=== PATIENT | female | born 1990 | race Caucasian/White ===

== ENCOUNTER 2016-12-09 22:53 | Emergency (ER) | payer OTHER ==
[2016-12-09] MEDS ORDERED: SODIUM CHLORIDE 0.9% 1,000 ML IV ONE (22:56)
[2016-12-09] MEDS ORDERED: ONDANSETRON 4 MG/2 ML VIAL IVP STA (22:56)
--- NOTE | 2016-12-09 23:01 | ED Physician Documentation ---
PD HPI SYNCOPE - Stated complaint Stated Complaint: - History obtained from History obtained from: Patient, EMS - History of Present Illness Witnessed: Witnessed Timing - onset: How many minutes ago (30) Duration: Seconds Preceding symptoms: Light headed Associated symptoms: Nausea / vomiting. No: Seizure, Incontinant of urine Contributing factors: No: Recent med change, Decreased PO intake, Noxious stimulae Injury occurred: No: Head injury, Neck injury Similar symptoms before: Has not had sx before Recently seen: Not recently seen - Additional information Additional information: Patient is a 26 year old female with no significant past medical history who was brought in by ems for a syncopal episode. According to patient and ems, patient was washing dishes when her housemates heard her crash in the kitchen. When they arrived patient was awake and alert so they called ems. EMS reports normal vital signs and normal blood glucose, but states patient had an episode of vomiting. Review of Systems Constitutional: denies: Fever, Chills Eyes: denies: Decreased vision, Photophobia Ears: denies: Loss of hearing, Ear pain Nose: denies: Rhinorrhea / runny nose, Congestion Throat: denies: Sore throat Cardiac: denies: Chest pain / pressure, Palpitations Respiratory: denies: Dyspnea, Cough, Wheezing GI: reports: Nausea, Vomiting. denies: Constipation, Diarrhea : denies: Dysuria, Frequency Skin: reports: Lesions Musculoskeletal: denies: Neck pain, Back pain, Extremity pain, Joint pain Neurologic: reports: Generalized weakness, Syncope. denies: Focal weakness, Headache, Head injury Psychiatric: denies: Depressed, Suicidal Immunocompromised: denies: Immunocompromised PD PAST MEDICAL HISTORY - Present Medications Home Medications: Ambulatory Orders Medication Instructions Recorded Confirmed Adalimumab [Humira] 20 mg SQ ONCE 12/09/16 12/09/16 Ondansetron Odt [Zofran] 4 mg TL Q6H PRN #20 tablet 12/10/16 - Allergies Allergies/Adverse Reactions: Allergies Allergy/AdvReac Type Severity Reaction Status Date / Time Penicillins Allergy Emesis Verified 12/09/16 23:02 PD ED PE NORMAL - Vitals Vital signs reviewed: Yes - General General: Alert and oriented X 3, No acute distress, Well developed/nourished - HEENT HEENT: Atraumatic, PERRL - Neck Neck: Supple, no meningeal sign, No JVD - Cardiac Cardiac: RRR, No murmur, No rub - Respiratory Respiratory: No respiratory distress, Clear bilaterally - Abdomen Abdomen: Soft, Non tender, Non distended - Derm Derm: Normal color, Warm and dry, No rash - Extremities Extremities: No deformity, Normal ROM s pain, No edema, No calf tenderness / cord - Neuro Neuro: Alert and oriented X 3, equipment or machinery cleaner 2-12 intact, No motor deficit, No sensory deficit, Normal speech - Psych Psych: Normal mood Results - Vitals Vitals: Vital Signs - 24 hr 12/09/16 12/10/16 12/10/16 22:58 00:03 00:11 Temperature 38 C H 37.1 C Heart Rate 71 72 Respiratory 16 14 Rate Blood Pressure 129/73 120/62 O2 Saturation 99 100 12/10/16 00:48 Temperature 37.2 C Heart Rate 73 Respiratory 18 Rate Blood Pressure 118/72 O2 Saturation 100 Oxygen O2 Source Room air - EKG (time done) 2300 Rate: Rate (enter#) (71) Rhythm: NSR [place]: Normal Intervals: Normal AR QRS: Normal Ischemia: Normal ST segments Compare to prior EKG: Old EKG unavailable - Labs Labs: Laboratory Tests 12/09/16 12/09/16 12/09/16 23:09 23:09 23:54 WBC 12.5 H RBC 4.82 Hgb 12.3 Hct 37.6 MCV 78.0 L MCH 25.6 L MCHC 32.8 RDW 16.3 H Plt Count 282 MPV 9.4 Neut # 8.9 H Lymph # 2.5 [place] # 0.8 Eos # 0.2 Baso # 0.1 Absolute Nucleated RBC 0.01 Nucleated RBC % 0.1 Sodium 141 Potassium 3.5 Chloride 105 Carbon Dioxide 26 Anion Gap 10.0 BUN 13 Creatinine 0.9 Estimated GFR (MDRD) 76 L Glucose 102 H Calcium 9.9 Total Bilirubin 0.7 AST 21 ALT 24 Alkaline Phosphatase 45 Total Protein 8.7 H Albumin 4.2 Globulin 4.5 H Albumin/Globulin Ratio 0.9 L Lipase 23 Urine Color Urine Clarity Urine pH Ur Specific [place] Urine Protein Urine Glucose (UA) Urine Ketones Urine Occult Blood Urine Nitrite Urine Bilirubin Urine Urobilinogen Ur Leukocyte Esterase Ur Microscopic Review Urine Culture Comments Urine HCG, Qual Urine Opiates Screen NEGATIVE Ur Oxycodone Screen NEGATIVE Urine Methadone Screen NEGATIVE Ur Propoxyphene Screen NEGATIVE Ur Barbiturates Screen NEGATIVE Ur Tricyclics Screen NEGATIVE Ur Phencyclidine Scrn NEGATIVE Ur Amphetamine Screen NEGATIVE U Methamphetamines Scrn NEGATIVE U Benzodiazepines Scrn NEGATIVE Urine Cocaine Screen NEGATIVE U Cannabinoids Screen NEGATIVE Ethyl Alcohol < 5.0 12/09/16 23:54 WBC RBC Hgb Hct MCV MCH MCHC RDW Plt Count MPV Neut # Lymph # [place] # Eos # Baso # Absolute Nucleated RBC Nucleated RBC % Sodium Potassium Chloride Carbon Dioxide Anion Gap BUN Creatinine Estimated GFR (MDRD) Glucose Calcium Total Bilirubin AST ALT Alkaline Phosphatase Total Protein Albumin Globulin Albumin/Globulin Ratio Lipase Urine Color YELLOW Urine Clarity CLEAR Urine pH 6.0 Ur Specific [place] >=1.030 H Urine Protein NEGATIVE Urine Glucose (UA) NEGATIVE Urine Ketones NEGATIVE Urine Occult Blood NEGATIVE Urine Nitrite NEGATIVE Urine Bilirubin NEGATIVE Urine Urobilinogen 0.2 (NORMAL) Ur Leukocyte Esterase NEGATIVE Ur Microscopic Review NOT INDICATED Urine Culture Comments NOT INDICATED Urine HCG, Qual NEGATIVE Urine Opiates Screen Ur Oxycodone Screen Urine Methadone Screen Ur Propoxyphene Screen Ur Barbiturates Screen Ur Tricyclics Screen Ur Phencyclidine Scrn Ur Amphetamine Screen U Methamphetamines Scrn U Benzodiazepines Scrn Urine Cocaine Screen U Cannabinoids Screen Ethyl Alcohol PD MEDICAL DECISION MAKING - ED course Complexity details: reviewed old records, reviewed results, re-evaluated patient , considered differential, d/w patient, d/w family ED course: Patient was seen and examined at bedside. ekg was performed and was nsr. labs were drawn and patient was treated with fluids and zofran. when patient's diagnostics came back she was found to be mildly dehydrated. Upon re- evaluation patient was feeling much better. Patient had no syncopal or near syncopal episodes. Patient required no further work up and was stable for discharge with outpatient follow up. Departure - Departure Disposition: 01 Home, Self Care Clinical Impression: Syncope Condition: Good Instructions: ED Fainting Unkn Cause Follow-Up: Heather Patiño ARNP [Primary Care Provider] - Within 3 Days Prescriptions: Ondansetron Odt [Zofran] 4 mg TL Q6H PRN #20 tablet PRN Reason: Nausea / Vomiting Comments: Your diagnostics today showed mild dehydration and a slight elevation in your wbc. You are likely starting to fight a virus. It is important to stay well hydrated with 80-100oz of fluid a day. You can take zofran for nausea, and motrin or tylenol as needed for fevers or chills. You should follow up with your doctor this week if your symptoms persist. You may return to the emergency department at any time for new, worsening or uncontrollable symptoms. Forms: Activity restrictions
[2016-12-09 23:15] LABS: BASOPHILS # (AUTO) 0.1 10^3/uL (0.0-0.1); BASOPHILS % (AUTO) 0.5 %; EOSINOPHILS # (AUTO) 0.2 10^3/uL (0.0-0.7); EOSINOPHILS % (AUTO) 1.5 %; HCT - HEMATOCRIT 37.6 % (37.0-47.0); HGB - HEMOGLOBIN 12.3 g/dL (12.0-16.0); LYMPHOCYTES # (AUTO) 2.5 10^3/uL (1.5-3.5); LYMPHOCYTES % (AUTO) 20.2 %; MEAN CORPUSCULAR HEMOGLOBIN 25.6 pg (27.0-31.0); MEAN CORPUSCULAR HGB CONC 32.8 g/dL (32.0-36.0); MEAN PLATELET VOLUME 9.4 fL (7.9-10.8); MONOCYTES # (AUTO) 0.8 10^3/uL (0.0-1.0); MONOCYTES % (AUTO) 6.4 %; NEUTROPHILS # (AUTO) 8.9 10^3/uL (1.5-6.6); NEUTROPHILS % (AUTO) 71.4 %; NUCLEATED RED BLOOD CELLS AUTO 0.1 /100WBC; RED BLOOD COUNT 4.82 10^6/uL (4.20-5.40); RED CELL DISTRIBUTION WIDTH 16.3 % (12.0-15.0); UNCORRECTED WHITE BLOOD COUNT 12.5 x10^3/uL; WHITE BLOOD COUNT 12.5 x10^3/uL (4.8-10.8)
[2016-12-09] MEDS ORDERED: ONDANSETRON 4 MG/2 ML VIAL ONE (23:25)
[2016-12-09 23:28] LABS: ALBUMIN/GLOBULIN RATIO 0.9 (1.0-2.2); BILIRUBIN,TOTAL 0.7 mg/dL (0.2-1.0); BUN - BLOOD UREA NITROGEN 13 mg/dL (6-20); CALCIUM 9.9 mg/dL (8.5-10.3); CARBON DIOXIDE - CO2 26 mmol/L (21-32); CHLORIDE 105 mmol/L (101-111); CREATININE 0.9 mg/dL (0.4-1.0); GFR - MDRD 76 (>89); GLUCOSE 102 mg/dL (70-100); LIPASE 23 U/L (22-51); POTASSIUM 3.5 mmol/L (3.5-5.0); SODIUM 141 mmol/L (135-145); TOTAL PROTEIN 8.7 g/dL (6.7-8.2)
[2016-12-10 00:12] LABS: BILIRUBIN,URINE NEGATIVE (NEGATIVE)
[2016-12-10 00:22] LABS: UA CHARGE (STRIP ONLY) YES; UR CULTURE IF IND NOT INDICATED
[2016-12-10 00:23] LABS: HCG UR QUAL NEGATIVE
[2016-12-10 00:51] VITALS: BP 118/72
== END 2016-12-10 01:00 | disposition home or self-care (01) ==
LOC: ED 22:53
DX: R55 Syncope and collapse (principal); E86.0 Dehydration; D72.829 Elevated white blood cell count, unspecified
CPT/HCPCS: 36415; 51701; 80053; 80306; 80320; 81001; 81003; 81025; 83690; 85025; 87086; 93005; 96361; 96374; 99284

== ENCOUNTER 2018-11-22 13:42 | Emergency (ER) | payer SELFPAY ==
[2018-11-22] MEDS ORDERED: SODIUM CHLORIDE 0.9% 1,000 ML IV ONE ×3 (13:58→14:03)
[2018-11-22] MEDS ORDERED: HYDROmorphone 1 MG/ML CARPUJECT IVP STA ×3 (13:58→20:45)
[2018-11-22] MEDS ORDERED: ONDANSETRON 4 MG/2 ML VIAL IVP STA ×2 (13:58→19:33)
[2018-11-22] MEDS ORDERED: metroNIDAZOLE 500 MG/100 ML 500 MG/100 ML BAG IV STA (14:01)
[2018-11-22] MEDS ORDERED: cefTRIAXone 2 GM in SODIUM CHLORIDE 0.9% MINIBAG 100 ML IV STA (14:01)
[2018-11-22] MEDS ORDERED: ACETAMINOPHEN 1,000 MG/100 ML 100 ML IV STA (14:03)
--- NOTE | 2018-11-22 14:06 | ED Physician Documentation ---
History of Present Illness - Stated complaint Stated Complaint: TOOTH X - Chief complaint Chief Complaint: Fever - History obtained from History obtained from: Patient, Family - History of Present Illness Pain level max: 10 Pain level now: 10 - Additonal information Additional information: 28-year-old female presents to the emergency department complaining of left upper and lower dental pain that started yesterday. She states today she started vomiting has developed a headache. Nothing makes it better or worse. No facial swelling. She states that her stomach is been hurting for the past several weeks as well. She states she was seen at [facility] 2 weeks ago and had a normal abdominal ultrasound and was recommended to have a HIDA scan. Review of Systems Ten Systems: 10 systems reviewed and negative Constitutional: reports: Fever Nose: denies: Rhinorrhea / runny nose, Congestion, Foreign Body Throat: denies: Sore throat Cardiac: denies: Chest pain / pressure Respiratory: denies: Cough GI: reports: Abdominal Pain, Nausea, Vomiting. denies: Diarrhea : denies: Dysuria, Frequency, Hesitancy, Now EGA Skin: denies: Rash Musculoskeletal: denies: Neck pain, Back pain Neurologic: denies: Headache PD PAST MEDICAL HISTORY - Past Medical History Past Medical History: Yes Respiratory: Asthma Derm: Other - Past Surgical History Past Surgical History: No - Present Medications Home Medications: Ambulatory Orders Medication Instructions Recorded Confirmed Albuterol Sulf [Ventolin Hfa 1 - 2 puffs INH Q4HR PRN #1 inhaler 11/07/18 Inhaler] - Allergies Allergies/Adverse Reactions: Allergies Allergy/AdvReac Type Severity Reaction Status Date / Time Penicillins Allergy Emesis Verified 11/22/18 13:49 - Social History Does the pt smoke?: No Smoking Status: Never smoker Does the pt have substance abuse?: No PD ED PE NORMAL - Vitals Vital signs reviewed: Yes - General General: Alert and oriented X 3, No acute distress, Well developed/nourished - HEENT HEENT: PERRL, Moist mucous membranes, Pharynx benign, Dentition benign - Neck Neck: Supple, no meningeal sign - Cardiac Cardiac: Other (Tachycardic) - Respiratory Respiratory: No respiratory distress, Clear bilaterally - Abdomen Abdomen: Soft, Non distended, Other (Tender to palpation right upper quadrant, positive Estevez sign) - Back Back: No spinal TTP, Other (Bilateral CVA tenderness.) - Derm Derm: Warm and dry - Extremities Extremities: No edema - Neuro Neuro: Alert and oriented X 3 - Psych Psych: Normal mood, Normal affect Results - Vitals Vitals: Vital Signs - 24 hr 11/22/18 11/22/18 11/22/18 13:46 14:19 15:00 Temperature 39.3 C H Heart Rate 139 H 115 H 111 H Respiratory 20 14 22 Rate Blood Pressure 136/99 H 144/91 H 149/77 H O2 Saturation 100 100 97 11/22/18 11/22/18 11/22/18 15:12 15:30 16:00 Temperature 38.3 C H Heart Rate 102 H 101 H Respiratory 18 16 Rate Blood Pressure 147/94 H 125/72 O2 Saturation 100 99 11/22/18 11/22/18 11/22/18 16:30 17:00 18:18 Temperature 37.7 C H 36.8 C Heart Rate 102 H 104 H 112 H Respiratory 17 18 15 Rate Blood Pressure 120/62 124/71 126/80 O2 Saturation 97 94 98 11/22/18 11/22/18 11/22/18 18:30 19:00 19:30 Temperature Heart Rate 110 H 104 H 106 H Respiratory 20 23 23 Rate Blood Pressure 126/80 138/74 H 158/102 H O2 Saturation 95 95 97 11/22/18 11/22/18 11/22/18 20:00 20:30 20:44 Temperature 37.8 C H Heart Rate 122 H 123 H Respiratory 16 17 Rate Blood Pressure 146/77 H O2 Saturation 98 98 11/22/18 11/22/18 11/22/18 20:55 21:07 21:10 Temperature 37.4 C Heart Rate 110 H 109 H Respiratory 20 Rate Blood Pressure 127/62 O2 Saturation 98 11/22/18 21:20 Temperature 37.0 C Heart Rate 99 Respiratory 20 Rate Blood Pressure 127/62 O2 Saturation 96 Oxygen O2 Source Room air - Labs Labs: Laboratory Tests 11/22/18 11/22/18 11/22/18 14:16 14:16 14:16 WBC 8.5 RBC 4.58 Hgb 11.5 L Hct 37.0 MCV 80.8 L MCH 25.1 L MCHC 31.1 L RDW 14.4 Plt Count 223 MPV 11.2 H Neut # (Auto) 7.3 H Lymph # (Auto) 0.6 L [place] # (Auto) 0.4 Eos # (Auto) 0.1 Baso # (Auto) 0.1 Absolute Nucleated RBC 0.00 Nucleated RBC % 0.0 Sodium 142 Potassium 4.0 Chloride 107 Carbon Dioxide 26 Anion Gap 9.0 BUN 11 Creatinine 0.8 Estimated GFR (MDRD) 86 L Glucose 95 Lactic Acid 1.2 Calcium 8.9 Total Bilirubin 0.9 AST 15 ALT 16 Alkaline Phosphatase 50 Total Protein 7.6 Albumin 3.8 Globulin 3.8 Albumin/Globulin Ratio 1.0 Lipase 27 Urine Color Urine Clarity Urine pH Ur Specific [place] Urine Protein Urine Glucose (UA) Urine Ketones Urine Occult Blood Urine Nitrite Urine Bilirubin Urine Urobilinogen Ur Leukocyte Esterase Urine RBC Urine WBC Ur Squamous Epith Cells Urine Bacteria Ur Microscopic Review Urine Culture Comments 11/22/18 14:55 WBC RBC Hgb Hct MCV MCH MCHC RDW Plt Count MPV Neut # (Auto) Lymph # (Auto) [place] # (Auto) Eos # (Auto) Baso # (Auto) Absolute Nucleated RBC Nucleated RBC % Sodium Potassium Chloride Carbon Dioxide Anion Gap BUN Creatinine Estimated GFR (MDRD) Glucose Lactic Acid Calcium Total Bilirubin AST ALT Alkaline Phosphatase Total Protein Albumin Globulin Albumin/Globulin Ratio Lipase Urine Color YELLOW Urine Clarity HAZY Urine pH 5.5 Ur Specific [place] 1.025 Urine Protein NEGATIVE Urine Glucose (UA) NEGATIVE Urine Ketones NEGATIVE Urine Occult Blood MODERATE H Urine Nitrite NEGATIVE Urine Bilirubin NEGATIVE Urine Urobilinogen 0.2 (NORMAL) Ur Leukocyte Esterase TRACE H Urine RBC 11-25 H Urine WBC 0-3 Ur Squamous Epith Cells MOD Squamous H Urine Bacteria Few Ur Microscopic Review INDICATED Urine Culture Comments NOT INDICATED - Rads (name of study) Right upper quadrant ultrasound Radiology: Prelim report reviewed, EMP read contemporaneously, See rad report (Mild fatty liver. 2. The gallbladder appears within normal limits. The patient is tender over the gallbladder. 3. No acute findings are seen. ) CT abdomen pelvis Radiology: Prelim report reviewed, EMP read contemporaneously, See rad report (Normal abdomen and pelvis CT. ) PD MEDICAL DECISION MAKING - ED course Complexity details: reviewed results, re-evaluated patient, considered differential, d/w patient ED course: 28-year-old female presents to the emergency department with fever, dental pain, right upper quadrant abdominal pain. No acute findings on CT scan or ultrasound to explain her pain. Normal white blood cell count. Normal lactate. She was given IV antibiotics upon presentation with concern for cholecystitis. She was having continued pain, therefore I contacted Dr. Ornelas, general surgery on-call who came and evaluated the patient. Does not feel that this is cholecystitis. He recommends an outpatient HIDA scan and follow-up with him in his office next week. Patient is comfortable with this plan. She is well-appearing, nontoxic. Pain controlled. Tolerating p.o. well. Patient counseled regarding signs and symptoms for which I believe and urgent re-evaluation would be necessary. Patient with good understanding of and agreement to plan and is comfortable going home at this time This document was made in part using voice recognition software. While efforts are made to proofread this document, sound alike and grammatical errors may occur. Departure - Departure Disposition: 01 Home, Self Care Clinical Impression: Tachycardia, Dental caries Fever Qualifiers: Fever type: unspecified Qualified Code(s): R50.9 - Fever, unspecified Abdominal pain Qualifiers: Abdominal location: unspecified location Qualified Code(s): R10.9 - Unspecified abdominal pain Condition: Good Instructions: ED Abdominal Pain Unkn Cause Follow-Up: your,doctor in 1 week [Other] Bashir Ornelas MD [Provider Admit Priv/Credential] - Within 1 week Comments: The cause of your symptoms is unclear today. Follow-up with your doctor for further care. You still need a HIDA scan. Return if you have continued fevers, worsening pain or vomiting. Do not drink alcohol or drive while on narcotic pain medicine. Note that many narcotic pain relievers also contain tylenol/acetaminophen. Please ensure that your total dose of acetaminophen from all sources does not exceed 3 grams (3000mg) per day. You may constipated on this medication, take a stool softener such as "Colace" twice a day while you are on it. Also recommend a [id number] laxative such as senna or MiraLAX any day that you do not have a bowel movement. If you received narcotic pain medication in the emergency department, do not drive or operate machinery for the next 24 hours. Discharge Date/Time: 11/22/18 21:20
[2018-11-22 14:20] LABS: BASOPHILS # (AUTO) 0.1 10^3/uL (0.0-0.1); BASOPHILS % (AUTO) 0.7 %; EOSINOPHILS # (AUTO) 0.1 10^3/uL (0.0-0.7); EOSINOPHILS % (AUTO) 0.8 %; HGB - HEMOGLOBIN 11.5 g/dL (12.0-16.0); LYMPHOCYTES # (AUTO) 0.6 10^3/uL (1.5-3.5); LYMPHOCYTES % (AUTO) 7.1 %; MEAN CORPUSCULAR HEMOGLOBIN 25.1 pg (27.0-31.0); MEAN CORPUSCULAR HGB CONC 31.1 g/dL (32.0-36.0); MEAN CORPUSCULAR VOLUME 80.8 fL (81.0-99.0); MEAN PLATELET VOLUME 11.2 fL (7.9-10.8); MONOCYTES # (AUTO) 0.4 10^3/uL (0.0-1.0); NEUTROPHILS # (AUTO) 7.3 10^3/uL (1.5-6.6); NEUTROPHILS % (AUTO) 85.9 %; PLT - PLATELET COUNT 223 10^3/uL (130-450); RED BLOOD COUNT 4.58 10^6/uL (4.20-5.40); RED CELL DISTRIBUTION WIDTH 14.4 % (12.0-15.0); WHITE BLOOD COUNT 8.5 x10^3/uL (4.8-10.8)
[2018-11-22 14:35] LABS: ALBUMIN 3.8 g/dL (3.2-5.5); BILIRUBIN,TOTAL 0.9 mg/dL (0.2-1.0); CALCIUM 8.9 mg/dL (8.5-10.3); CREATININE 0.8 mg/dL (0.4-1.0); TOTAL PROTEIN 7.6 g/dL (6.7-8.2)
[2018-11-22 15:04] LABS: BILIRUBIN,URINE NEGATIVE (NEGATIVE); GLUCOSE, URINE (UA) NEGATIVE (NEGATIVE); KETONES,URINE (UA) NEGATIVE (NEGATIVE); LEUKOCYTE ESTERASE, URINE TRACE (NEGATIVE); NITRITE,URINE NEGATIVE (NEGATIVE); OCCULT BLOOD,URINE MODERATE (NEGATIVE); PH,URINE 5.5 PH (5.0-7.5); PROTEIN,URINE NEGATIVE (NEGATIVE); UROBILINOGEN,URINE 0.2 (NORMAL) E.U./dL (NORMAL)
[2018-11-22 15:06] LABS: CLARITY,URINE HAZY (CLEAR)
[2018-11-22 15:21] LABS: SQUAMOUS EPITHELIAL CELL,UR MOD Squamous (<= Few)
[2018-11-22 15:22] LABS: BACTERIA,URINE Few /HPF (None Seen)
[2018-11-22] MEDS ORDERED: IOVERSOL 320 100 ML VIAL IVP ONE ×2 (17:04→17:45)
--- NOTE | 2018-11-22 17:06 | Ultrasound Report ---
Reason: RUQ abd pain, fever Procedure Date: 11/22/2018 Accession Number: [id number] / [id number] Procedure: US - Abdomen Limited CPT Code: FULL RESULT: EXAM: ABDOMEN ULTRASOUND LIMITED, RUQ EXAM DATE: 11/22/2018 04:31 PM. CLINICAL HISTORY: Right upper quadrant abdominal pain, fever. Nausea and fever for 1 day. COMPARISON: None. TECHNIQUE: Real-time scanning was performed with static images obtained. FINDINGS: Liver: Mild fatty liver with diffuse hyperechogenicity. 19.7 cm. Main portal vein flow: Hepatopetal. Gallbladder: No gallbladder wall thickening. Wall thickness measures 2 mm. No gallstones are seen. The gallbladder is tender. The common duct measures 5 mm. No bile duct dilatation. Right kidney measures 11.9 cm in length and there is no hydronephrosis. Suboptimal images due to patient's body habitus and overlying bowel gas. IMPRESSION: 1. Mild fatty liver. 2. The gallbladder appears within normal limits. The patient is tender over the gallbladder. 3. No acute findings are seen. RADIA
[2018-11-22] MEDS ORDERED: SUMAtriptan 6 MG/0.5 ML VIAL SUBQ STA (18:08)
--- NOTE | 2018-11-22 18:23 | CT Report ---
Reason: abd pain, fever, blood in urine Procedure Date: 11/22/2018 Accession Number: [id number] / [id number] Procedure: CT - Abdomen/Pelvis W CPT Code: FULL RESULT: EXAM: CT ABDOMEN AND PELVIS EXAM DATE: 11/22/2018 05:42 PM. CLINICAL HISTORY: Abdomen pain. Fever. Blood in urine. COMPARISONS: None. TECHNIQUE: Routine helical CT imaging was performed through the abdomen and pelvis. IV contrast: 90 cc of Optiray 320. Enteric contrast: No. Reconstructions: Coronal and sagittal. In accordance with CT protocol optimization, one or more of the following dose reduction techniques were utilized for this exam: automated exposure control, adjustment of mA and/or KV based on patient size, or use of iterative reconstructive technique. FINDINGS: Lung Bases: Small hiatal hernia noted. Liver: Normal. No masses. Gallbladder/Bile Ducts: Unremarkable. Spleen: Normal. Pancreas: Normal. Adrenal Glands: Normal. Kidneys: Normal. No masses or hydronephrosis. Peritoneal Cavity/Bowel: Normal. No free fluid, free air or adenopathy. No masses or acute inflammatory process. Nonvisualized appendix. Pelvic Organs: Normal. The bladder and visualized pelvic organs are within normal limits. Vasculature: No aneurysms or other significant abnormality. Bones: No significant abnormality. Other: None. IMPRESSION: Normal abdomen and pelvis CT. RADIA
--- NOTE | 2018-11-22 20:37 | CONSULTATION NOTE ---
Referring Provider Name of Referring Provider:: Dr. Solis Consult Date: 11/22/18 Chief Complaint - Chief Complaint Chief Complaint: dental pain, N/V, RUQ pain History of Present Illness - Admitted From Admitted From:: ER - History Obtained From Records Reviewed: yes History obtained from: pt Exam Limitations: none - History of Present Illness HPI Comment/Other: 28 yo female with 1 month hx of intermittent postprandial RUQ pain, exacerbated by fatty foods, for which she was evaluated at [facility] 2 weeks ago with an abd US which was reportedly neg. She was advised to have a HIDA scan but due to be uninsured, they declined to schedule it for her. She has also been having increasing dental pain involving both upper an lower left lateral teeth, and has a hx of a severe dental abscess requiring surgical drainage in the past. She was on her way to see the dentist today when she developed fever, nausea and vomiting and instead came to the ER for evaluation. She reports recent rhinorrhea and a sore throat over the past several days, which she attributed to allergies. No cough, dysuria, or recent wt loss. She reports a 25 # wt gain over past 6 months. She has a +FH gallbladder disease in her mother; no hx hepatitis or jaundice, no editor department sx. She is G0 and has a subcutaneous control implant and is amenorrheic. Evaluation in the ER included IVF, empiric antibiotic therapy and nl CBC, CMP, lipase, and UA except microscopic hematuria. ABD US was neg except for tenderness over the gallbladder area. CT abd/pelvis was neg. Surgical consultation was requested. She reports feeling much better now, is hungry and wants to go home. History - Past Medical History Respiratory: reports: Asthma Derm: reports: Other (hydradenitis suppurativa) MRSA Hx?: No - Past Surgical History HEENT: reports: Other (I & D dental abscesses) - Family & Social History Family History Comment/Other: +gallbladder dz in mother Living arrangement: At home - Substance History Use: Uses substance without health or social issues: NONE Meds/Allgy - Home Medications Home Medications: Ambulatory Orders Medication Instructions Recorded Confirmed Albuterol Sulf [Ventolin Hfa 1 - 2 puffs INH Q4HR PRN #1 inhaler 11/07/18 Inhaler] - Allergies Allergies/Adverse Reactions: Allergies Allergy/AdvReac Type Severity Reaction Status Date / Time Penicillins Allergy Emesis Verified 11/22/18 13:49 Review of Systems - Constitutional Constitutional: reports: Fever, Weight gain - Ears, Nose & Throat Ears, Nose & Throat: reports: Dental pain - Respiratory Respiratory: denies: Cough - Gastrointestinal Gastrointestinal: reports: Abdominal pain, Nausea, Vomiting, Bile emesis. denies: Constipation, Diarrhea, Change in bowel habits, Rectal bleeding, Black stools, Bloody stools, Eulalio blood emesis, Coffee grounds emesis, Reflux/heartburn, Bloating - Genitourinary Genitourinary: denies: Dysuria - Hematologic/Lymphatic Hematologic/Lymphatic: denies: Bruising, Blood clots, Bleeding tendencies - All Other Systems All Other Systems: reports: Reviewed and negative (or covered in HPI/PMH) Exam - Vital Signs Reviewed Vital Signs: Yes Vital Signs: Vital Signs x48h Temp Pulse Resp BP Pulse Ox 11/22/18 19:30 106 H 23 158/102 H 97 11/22/18 19:00 104 H 23 138/74 H 95 11/22/18 18:30 110 H 20 126/80 95 11/22/18 18:18 36.8 C 112 H 15 126/80 98 11/22/18 17:00 104 H 18 124/71 94 11/22/18 16:30 37.7 C H 102 H 17 120/62 97 11/22/18 16:00 101 H 16 125/72 99 11/22/18 15:30 102 H 18 147/94 H 100 11/22/18 15:12 38.3 C H 11/22/18 15:00 111 H 22 149/77 H 97 11/22/18 14:19 115 H 14 144/91 H 100 11/22/18 13:46 39.3 C H 139 H 20 136/99 H 100 - Physical Exam General Appearance: positive: No acute distress, Alert Eyes Bilateral: positive: Normal inspection, Conjunctivae nml, No scleral icterus ENT: positive: ENT inspection nml, Pharynx nml, No signs of dehydration, Other (no focal dental tenderness or gum swelling or tenderness; no visible or palpable abscesses). negative: Oral lesions Neck: positive: Nml inspection, No JVD, Trachea midline. negative: Lymphadenopathy (R), Lymphadenopathy (L) Respiratory: positive: Chest non-tender, No respiratory distress, Breath sounds nml Cardiovascular: positive: Regular rate & rhythm, No murmur, No gallop Peripheral Pulses: positive: 2+ Abdomen: positive: No organomegaly, Nml bowel sounds, No distention, Tenderness (minimal RUQ tenderness; no guarding, rebound; neg Estevez's sign) Skin: positive: Color nml, No rash, Warm, Dry. negative: Cyanosis Extremities: positive: Non-tender, No pedal edema. negative: Calf tenderness Neurologic/Psychiatric: positive: Oriented x3 Conclusion/Plan - Diagnosis Diagnosis: 1. Fever, N/V of unclear etiology, resolving; likely represents viral syndrome/gastrenteritis. no evidence of acute abd, acute cholecystitis. 2. Chronic RUQ pain, sx suggestive of biliary colic; may be due to biliary dyskinesia, chronic acalculous cholecystitis. 3. Dental pain; dental caries and evolving abscess certainly possible - Plan Plan: Given the fact that the patient is feeling much better and the benign findings on her current evaluation, If pt tolerates liquids po, she could be discharged home with a low fat diet, f/u with her dentist and f/u in my office to arrange for a HIDA scan to assess gb function. Discussed with pt and Dr. Solis, who agree. thanks, - Lab Results Fish Bones: 11/22/18 14:16 11/22/18 14:16 - Diagnostic Imaging Results Diagnostic Imaging Results: positive: Final report reviewed, Read independently Diagnostic Imaging Results Comments: See HPI
[2018-11-22 21:08] VITALS: BP 127/62
== END 2018-11-22 21:20 | disposition home or self-care (01) ==
LOC: ED 13:42
DX: R50.9 Fever, unspecified (principal); R10.9 Unspecified abdominal pain; R00.0 Tachycardia, unspecified; K02.9 Dental caries, unspecified; J45.909 Unspecified asthma, uncomplicated; Z79.51 Long term (current) use of inhaled steroids
CPT/HCPCS: 36415; 74177; 76705; 80053; 81001; 83605; 83690; 85025; 87040; 96361; 96365; 96366; 96368; 96372; 96375; 96376; 99285; J0131; J1170; Q9967; 81003; 87086

== ENCOUNTER 2019-02-05 11:40 | Emergency (ER) | payer MEDICAID ==
[2019-02-05] MEDS ORDERED: ALBUTEROL NEB 2.5 MG/3 ML INH STA (13:13)
--- NOTE | 2019-02-05 13:16 | ED Physician Documentation ---
PD HPI DYSPNEA - Stated complaint Stated Complaint: COUGH/VOMITING - Chief complaint Chief Complaint: Resp - History obtained from History obtained from: Patient - History of Present Illness Timing - onset: Other (She has a history of asthma, she is been coughing for a month and worse over the last week with some production of yellow sputum, she has posttussive emesis but no nausea per se. She is short of breath. Usually she takes a neb at home as well as a rescue inhaler and she is out of both. No fevers.) Review of Systems Constitutional: reports: Fatigue (From poor sleep due to coughing). denies: Fever, Chills Nose: denies: Rhinorrhea / runny nose Throat: denies: Sore throat Cardiac: denies: Chest pain / pressure Respiratory: reports: Dyspnea, Cough, Wheezing GI: denies: Abdominal Pain PD PAST MEDICAL HISTORY - Past Medical History Respiratory: Asthma Derm: Other - Past Surgical History Past Surgical History: No HEENT: Other (I & D dental abscesses) - Present Medications Home Medications: Ambulatory Orders Medication Instructions Recorded Confirmed Albuterol Sulf [Ventolin Hfa 1 - 2 puffs INH Q4HR PRN #1 inhaler 11/07/18 Inhaler] Albuterol 2.5 mg INH Q4H PRN #30 neb 02/05/19 Albuterol Sulfate [Proair Hfa 1 - 2 puffs INH Q4H PRN #1 inhaler 02/05/19 Inhaler] Azithromycin [Zithromax] 1 tab PO DAILY #6 tablet 02/05/19 guaiFENesin/CODEINE [Robitussin AC] 5 - 10 ml PO Q6H PRN #120 ml 02/05/19 predniSONE [Deltasone] 60 mg PO DAILY 5 Days #15 tablet 02/05/19 - Allergies Allergies/Adverse Reactions: Allergies Allergy/AdvReac Type Severity Reaction Status Date / Time Penicillins Allergy Emesis Verified 02/05/19 11:49 - Social History Does the pt smoke?: No Smoking Status: Never smoker Does the pt drink ETOH?: No Does the pt have substance abuse?: No - Immunizations Immunizations are current?: Yes PD ED PE NORMAL - Vitals Vital signs reviewed: Yes - General General: Alert and oriented X 3, No acute distress - HEENT HEENT: Ears normal, Pharynx benign - Neck Neck: Supple, no meningeal sign, No bony TTP - Cardiac Cardiac: RRR, No murmur - Respiratory Respiratory: Other (Diminished and wheezy throughout without focal findings) - Abdomen Abdomen: Non tender - Derm Derm: No rash - Extremities Extremities: No edema, No calf tenderness / cord - Neuro Neuro: Alert and oriented X 3, Normal speech - Psych Psych: Normal mood, Normal affect Results - Vitals Vitals: Vital Signs - 24 hr 02/05/19 11:45 Temperature 36.4 C L Heart Rate 99 Respiratory 17 Rate Blood Pressure 122/54 L O2 Saturation 98 Oxygen O2 Source Room air PD MEDICAL DECISION MAKING - ED course ED course: This is a 28-year-old woman with history of asthma who presents with wheezy bronchitis, the time course would merit a trial of antibiotics along with other routine therapies. Departure - Departure Disposition: 01 Home, Self Care Clinical Impression: Asthma Qualifiers: Asthma severity: moderate Asthma persistence: persistent Asthma complication type: with acute exacerbation Qualified Code(s): J45.41 - Moderate persistent asthma with (acute) exacerbation Condition: Good Record reviewed to determine appropriate education?: Yes Instructions: Asthma Dc, ED Bronchitis Asthmatic Prescriptions: Albuterol 2.5 mg INH Q4H PRN #30 neb PRN Reason: Wheezing Albuterol Sulfate [Proair Hfa Inhaler] 1 - 2 puffs INH Q4H PRN #1 inhaler PRN Reason: Shortness Of Air/Wheezing Azithromycin [Zithromax] 1 tab PO DAILY #6 tablet guaiFENesin/CODEINE [Robitussin AC] 5 - 10 ml PO Q6H PRN #120 ml PRN Reason: Cough predniSONE [Deltasone] 60 mg PO DAILY 5 Days #15 tablet Comments: Call your doctor to arrange a follow-up appointment, make the next available appointment. In the interim, return anytime if worse or if new symptoms develop.
[2019-02-05 13:41] VITALS: BP 141/95
== END 2019-02-05 13:41 | disposition home or self-care (01) ==
LOC: ED 11:40
DX: J45.41 Moderate persistent asthma with (acute) exacerbation (principal)
CPT/HCPCS: 94640; 99284

== ENCOUNTER 2019-04-23 11:29 | Emergency (ER) | payer MEDICAID ==
[2019-04-23 11:39] VITALS: BP 147/104
[2019-04-23] MEDS ORDERED: ACYCLOVIR 200 MG CAPSULE PO STA (12:04)
--- NOTE | 2019-04-23 12:07 | ED Physician Documentation ---
PD HPI SKIN - Stated complaint Stated Complaint: COLD SORE - Chief complaint Chief Complaint: Wound - History obtained from History obtained from: Patient (She started to get a cold sore on the left upper lip today, she also has 4 days of dental pain in the same area without fevers. She is not sleeping due to the pain.) Review of Systems Constitutional: reports: Fatigue. denies: Fever, Chills Nose: denies: Rhinorrhea / runny nose, Congestion Throat: denies: Sore throat Cardiac: denies: Chest pain / pressure, Palpitations Respiratory: denies: Dyspnea PD PAST MEDICAL HISTORY - Past Medical History Past Medical History: Yes Respiratory: Asthma Derm: Other - Past Surgical History Past Surgical History: No HEENT: Other - Present Medications Home Medications: Ambulatory Orders Medication Instructions Recorded Confirmed Albuterol 2.5 mg INH Q4H PRN #30 neb 02/05/19 Acyclovir 400 mg PO TID #30 tablet 04/23/19 Beclomethasone 80 Mcg [Qvar 80] 2 puffs DAILY 04/23/19 04/23/19 Clindamycin HCl [Clindamycin 300MG 300 mg PO Q6H #28 capsule 04/23/19 CAP] Hydrocodone/Acetaminophen 1 - 2 each PO Q6H PRN #10 tablet 04/23/19 [Hydrocodon-Acetaminophen 5-325] - Allergies Allergies/Adverse Reactions: Allergies Allergy/AdvReac Type Severity Reaction Status Date / Time Penicillins Allergy Emesis Verified 04/23/19 11:39 - Social History Does the pt smoke?: No Smoking Status: Never smoker Does the pt drink ETOH?: No Does the pt have substance abuse?: No - Immunizations Immunizations are current?: Yes PD ED PE NORMAL - Vitals Vital signs reviewed: Yes - General General: Alert and oriented X 3, No acute distress - HEENT HEENT: Other (She generally has poor dentition, there is a small cold sore on the left upper lip. The first maxillary molar on the left is tender. No trismus or facial swelling.) - Neck Neck: Supple, no meningeal sign, No bony TTP - Neuro Neuro: Alert and oriented X 3, Normal speech Results - Vitals Vitals: Vital Signs - 24 hr 04/23/19 11:35 Temperature 36.3 C L Heart Rate 100 Respiratory 18 Rate Blood Pressure 147/104 H O2 Saturation 96 Oxygen O2 Source Room air Departure - Departure Disposition: Home, Self Care Clinical Impression: Herpes simplex, Dental caries Condition: Good Record reviewed to determine appropriate education?: Yes Instructions: ED Tooth Pain, ED Herpes Simplex Virus Type 1 Prescriptions: Acyclovir 400 mg PO TID #30 tablet Clindamycin HCl [Clindamycin 300MG CAP] 300 mg PO Q6H #28 capsule Hydrocodone/Acetaminophen [Hydrocodon-Acetaminophen 5-325] 1 - 2 each PO Q6H PRN #10 tablet PRN Reason: pain Comments: Call your doctor to arrange a follow-up appointment, make the next available appointment. In the interim, return anytime if worse or if new symptoms develop. It is very important that you follow-up with a dentist. When it comes to dental problems like yours, the emergency department can only offer a short-term solution to your long-term problem. A couple of low cost options for dental care include: [facility] in [place], calls [phone] for an appointment Or [facility] in [place], call [phone] for an appointment.
== END 2019-04-23 12:28 | disposition home or self-care (01) ==
LOC: ED 11:29
DX: B00.1 Herpesviral vesicular dermatitis (principal); K02.9 Dental caries, unspecified
CPT/HCPCS: 99283; A9270

== ENCOUNTER 2019-06-11 19:03 | Emergency (ER) | payer MEDICAID ==
[2019-06-11 19:12] VITALS: BP 116/68
--- NOTE | 2019-06-11 19:17 | ED Physician Documentation ---
PD HPI LOWER EXT INJURY - Stated complaint Stated Complaint: RT ANKLE INJ - Chief complaint Chief Complaint: Trauma Ext - History obtained from History obtained from: Patient - History of Present Illness PD HPI LOW EXT INJURY LOCATION: Right (Pt was walking to her car this evening and stepped awkwardly twisting right ankle. Recent sprain of the right ankle a couple of months ago. Has a boot but doesn't wear it. Able to ambulate but uncomfortable. 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.) Review of Systems Constitutional: reports: Reviewed and negative Cardiac: reports: Reviewed and negative Respiratory: reports: Reviewed and negative Skin: reports: Reviewed and negative Musculoskeletal: reports: Extremity pain, Joint pain (Right ankle pain), Joint swelling PD PAST MEDICAL HISTORY - Past Medical History Past Medical History: Yes Respiratory: Asthma Derm: Other - Past Surgical History Past Surgical History: No HEENT: Other - Present Medications Home Medications: Ambulatory Orders Medication Instructions Recorded Confirmed Albuterol 2.5 mg INH Q4H PRN #30 neb 02/05/19 06/11/19 Beclomethasone 80 Mcg [Qvar 80] 2 puffs DAILY 04/23/19 06/11/19 Minocycline HCl 50 mg PO DAILY 06/11/19 06/11/19 - Allergies Allergies/Adverse Reactions: Allergies Allergy/AdvReac Type Severity Reaction Status Date / Time Penicillins Allergy Emesis Verified 06/11/19 19:12 - Social History Does the pt smoke?: No Smoking Status: Never smoker Does the pt drink ETOH?: No Does the pt have substance abuse?: No - Immunizations Immunizations are current?: Yes - POLST Patient has POLST: No PD ED PE NORMAL - Vitals Vital signs reviewed: Yes - General General: Alert and oriented X 3, No acute distress, Well developed/nourished - HEENT HEENT: Atraumatic, Moist mucous membranes - Cardiac Cardiac: RRR, No murmur, No gallop, No rub - Respiratory Respiratory: No respiratory distress, Clear bilaterally - Derm Derm: Normal color, Warm and dry, No rash - Extremities Extremities: Other (Right lateral malleolar swelling with malleolar pain. Normal color, 2+ pedal pulses. Moves toes w/o difficulty. Can toe touch weight bear. ) Results - Vitals Vitals: Vital Signs - 24 hr 06/11/19 19:05 Temperature 36.8 C Heart Rate 94 Respiratory 16 Rate Blood Pressure 116/68 O2 Saturation 100 Oxygen O2 Source Room air PD MEDICAL DECISION MAKING - ED course Complexity details: reviewed results, d/w patient ED course: Pt with right ankle sprain, no fracture per my read of xray. Pt declined crutches, provided DENNIS and air splint. Advised rest, cool compress, nsaids, elevation. Follow up with pcp if no improvement in 2-3 weeks for possible PT. Departure - Departure Disposition: Home, Self Care Clinical Impression: Ankle sprain Qualifiers: Encounter type: initial encounter Involved ligament of ankle: unspecified ligament Laterality: right Qualified Code(s): S93.401A - Sprain of unspecified ligament of right ankle, initial encounter Condition: Good Instructions: ED Sprain Ankle W X Ray Comments: You presented after twisting right ankle. There is no fracture per xray and exam is consistent with a sprain. I recommend rest, cool compress, ibuprofen or tylenol, and elevation of leg whenever possible. Follow up with primary doctor if no improvement in 2-3 weeks for possible PT. Discharge Date/Time: 06/11/19 20:08
--- NOTE | 2019-06-11 19:44 | XRAY Report ---
Reason: rolled R ankle/swollen Procedure Date: 06/11/2019 Accession Number: [id number] / [id number] Procedure: XR - Ankle 3 View RT CPT Code: Final Report FULL RESULT: EXAM: RIGHT ANKLE RADIOGRAPHY EXAM DATE: 06/11/2019 07:32 PM. CLINICAL HISTORY: Rolled R ankle/swollen. COMPARISON: None. TECHNIQUE: 3 views. FINDINGS: Bones: Normal. No fractures or bone lesions. Joints: Normal. No effusion. No subluxations. The ankle mortise is normally aligned. Soft Tissues: Moderate soft tissue swelling at right ankle joint. IMPRESSION: Moderate soft tissue swelling at right ankle joint. No acute displaced fracture or malalignment. RADIA
== END 2019-06-11 20:08 | disposition home or self-care (01) ==
LOC: ED 19:03
DX: S93.401A Sprain of unspecified ligament of right ankle, initial encounter (principal); X50.1XXA Overexertion from prolonged static or awkward postures, initial encounter; Y93.01 Activity, walking, marching and hiking; Y92.9 Unspecified place or not applicable
CPT/HCPCS: 99282; 99283

== ENCOUNTER 2019-07-04 17:08 | Emergency (ER) | payer MEDICAID ==
[2019-07-04 17:16] VITALS: BP 145/89
[2019-07-04] MEDS ORDERED: DOXYCYCLINE 100 MG TABLET PO STA (17:33)
[2019-07-04] MEDS ORDERED: predniSONE 20 MG TABLET PO STA (17:33)
--- NOTE | 2019-07-04 17:35 | ED Physician Documentation ---
History of Present Illness - Stated complaint Stated Complaint: SKIN CONDITION FLARE UP / BLEEDING - Chief complaint Chief Complaint: General - History obtained from History obtained from: Patient (29-year-old woman with hidradenitis separative a, being worked up for potentially a skin graft at [facility]. Has not been able to see a precision thread grinder operator in about a month due to coronavirus and has a flare of her underlying condition with multiple swollen and draining areas and some bleeding 2. No fevers or possibility of .) Review of Systems Constitutional: reports: Reviewed and negative Nose: reports: Reviewed and negative Throat: reports: Reviewed and negative Cardiac: reports: Reviewed and negative Respiratory: reports: Reviewed and negative PD PAST MEDICAL HISTORY - Past Medical History Respiratory: Asthma Derm: Other - Past Surgical History Past Surgical History: No HEENT: Other - Present Medications Home Medications: Ambulatory Orders Medication Instructions Recorded Confirmed Albuterol 2.5 mg INH Q4H PRN #30 neb 02/05/19 06/11/19 Beclomethasone 80 Mcg [Qvar 80] 2 puffs DAILY 04/23/19 06/11/19 Minocycline HCl 50 mg PO DAILY 06/11/19 06/11/19 Hydrocodone/Acetaminophen 1 - 2 each PO Q6H PRN #14 tablet 07/04/19 [Hydrocodon-Acetaminophen 5-325] Minocycline HCl 100 mg PO BID #60 capsule 07/04/19 predniSONE [Deltasone] 20 mg PO [id number] #21 tab 07/04/19 - Allergies Allergies/Adverse Reactions: Allergies Allergy/AdvReac Type Severity Reaction Status Date / Time Penicillins Allergy Emesis Verified 07/04/19 17:11 vancomycin AdvReac Rash Verified 07/04/19 17:11 - Social History Does the pt smoke?: No Smoking Status: Never smoker Does the pt drink ETOH?: No Does the pt have substance abuse?: No - Immunizations Immunizations are current?: Yes - POLST Patient has POLST: No PD ED PE NORMAL - Vitals Vital signs reviewed: Yes - General General: Alert and oriented X 3, No acute distress - HEENT HEENT: PERRL, EOMI - Neck Neck: Supple, no meningeal sign, No bony TTP - Derm Derm: Other (She has a severe case of hidradenitis separative in the axillae. Nothing that would need incision and drainage, but multiple areas of fistula formation.) - Neuro Neuro: Alert and oriented X 3, Normal speech Results - Vitals Vitals: Vital Signs - 24 hr 07/04/19 17:12 Temperature 36.4 C L Heart Rate 87 Respiratory 20 Rate Blood Pressure 145/89 H O2 Saturation 100 Oxygen O2 Source Room air Departure - Departure Disposition: Home, Self Care Clinical Impression: Hidradenitis suppurativa Condition: Good Record reviewed to determine appropriate education?: Yes Instructions: Hidradenitis Suppurativa Prescriptions: Hydrocodone/Acetaminophen [Hydrocodon-Acetaminophen 5-325] 1 - 2 each PO Q6H PRN #14 tablet PRN Reason: pain Minocycline HCl 100 mg PO BID #60 capsule predniSONE [Deltasone] 20 mg PO [id number] #21 tab Comments: Follow-up with your precision thread grinder operator when able, return for new or worsening symp toms.
== END 2019-07-04 17:45 | disposition home or self-care (01) ==
LOC: ED 17:08
DX: L73.2 Hidradenitis suppurativa (principal); L98.8 Other specified disorders of the skin and subcutaneous tissue
CPT/HCPCS: 99283; 99284; A9270; J7512

== ENCOUNTER 2019-11-12 19:21 | Emergency (ER) | payer MEDICAID ==
[2019-11-12] MEDS ORDERED: HYDROmorphone 1 MG/ML CARPUJECT IM STA (20:32)
--- NOTE | 2019-11-12 20:36 | ED Physician Documentation ---
History of Present Illness - Stated complaint Stated Complaint: LT SIDE BACK PX - Chief complaint Chief Complaint: Back Pain - History obtained from History obtained from: Patient - History of Present Illness Timing: Last night - Additonal information Additional information: 29-year-old female presents to the emergency department for evaluation of acute left upper thoracic back pain. She reports that intermittently through the years she has had twinges of pain but this episode did not get better. She has had no cough or fevers no vomiting. No anterior chest pain. No dyspnea. She does have Nexplanon implanted in her arm. Non-smoker. She denies falls or trauma. PMH: Hypertension, obesity Meds: Hydrochlorothiazide. Review of Systems Constitutional: reports: Reviewed and negative Eyes: reports: Reviewed and negative Nose: reports: Reviewed and negative Throat: reports: Reviewed and negative Cardiac: reports: Reviewed and negative Respiratory: reports: Reviewed and negative GI: reports: Reviewed and negative : reports: Reviewed and negative Skin: reports: Reviewed and negative Musculoskeletal: reports: Back pain (left lateral thoracic) Neurologic: reports: Reviewed and negative Psychiatric: reports: Reviewed and negative PD PAST MEDICAL HISTORY - Past Medical History Past Medical History: Yes Respiratory: Asthma Derm: Other - Past Surgical History Past Surgical History: No HEENT: Other - Present Medications Home Medications: Ambulatory Orders Medication Instructions Recorded Confirmed Albuterol 2.5 mg INH Q4H PRN #30 neb 02/05/19 06/11/19 Beclomethasone 80 Mcg [Qvar 80] 2 puffs DAILY 04/23/19 06/11/19 Minocycline HCl 50 mg PO DAILY 06/11/19 06/11/19 Hydrocodone/Acetaminophen 1 - 2 each PO Q6H PRN #14 tablet 07/04/19 [Hydrocodon-Acetaminophen 5-325] Minocycline HCl 100 mg PO BID #60 capsule 07/04/19 predniSONE [Deltasone] 20 mg PO [id number] #21 tab 07/04/19 Methocarbamol [Robaxin-750] 750 mg PO TID PRN #30 tablet 11/12/19 - Allergies Allergies/Adverse Reactions: Allergies Allergy/AdvReac Type Severity Reaction Status Date / Time Penicillins Allergy Emesis Verified 07/04/19 17:11 vancomycin AdvReac Rash Verified 07/04/19 17:11 - Social History Does the pt smoke?: No Smoking Status: Never smoker Does the pt drink ETOH?: No Does the pt have substance abuse?: No - Immunizations Immunizations are current?: Yes - POLST Patient has POLST: No PD ED PE EXPANDED - General General: Alert, In Pain - Eyes Eyes: PERRL, EOMI - Neck Neck: Supple w/out meningeal sx, No tenderness. No: Adenopathy - Cardiac Cardiac: Regular Rate, Regular Rhythm, Radial strong equal, Cap refill < 2 sec - Respiratory Respiratory: Clear to ausultation gabi. No: Distress, Labored - Abdomen Abdomen: Normal Bowel sounds. No: Tender to palpation - Back Back: Normal exam, Soft tissue tenderness (left lateral thoracic reproducible with palpation. Full ROM lumbar spine. Full ROM of shoulder. No rash), CVA TTP left. No: Vertebral tenderness, CVA TTP right - Neuro Neuro: Alert and Oriented X 3, CNII-XII intact - GCS Eye Opening: Spontaneous Motor: Obeys Commands Verbal: Oriented Total: 15 Results - Vitals Vitals: Vital Signs - 24 hr 11/12/19 11/12/19 19:27 20:11 Temperature 98.6 C H 37.0 C Heart Rate 103 H 100 Respiratory 14 15 Rate Blood Pressure 145/101 H 142/98 H O2 Saturation 99 100 Oxygen O2 Source Room air - Labs Labs: Laboratory Tests 11/12/19 20:32 Urine Color YELLOW Urine Clarity CLEAR Urine pH 6.5 Ur Specific [place] 1.025 Urine Protein NEGATIVE Urine Glucose (UA) NEGATIVE Urine Ketones NEGATIVE Urine Occult Blood NEGATIVE Urine Nitrite NEGATIVE Urine Bilirubin NEGATIVE Urine Urobilinogen 0.2 (NORMAL) Ur Leukocyte Esterase NEGATIVE Ur Microscopic Review NOT INDICATED Urine Culture Comments NOT INDICATED Urine HCG, Qual NEGATIVE - Rads (name of study) CXR Radiology: EMP read indepedently (No acute cardiopulmonary process), See rad report PD MEDICAL DECISION MAKING - ED course Complexity details: reviewed old records, reviewed results, re-evaluated patient, considered differential, d/w patient, d/w family ED course: 29-year-old female presents the emergency department with 24 hours of left lateral thoracic back pain. She has not taken anything at home because she is trying to avoid the overuse of ibuprofen as she thinks she is been using it too frequently. - She is Wells criteria negative for DVT/PE. CXR Per my read does not show any acute cardiopulmonary process. - -Her urine shows no hematuria and no significant CVA tenderness. Low suspicion for renal colic. - Patient was given 1 mg of Dilaudid in the ER with good relief of pain. On reexam she was moving much more comfortably. I will recommend that she continue to use ibuprofen at home and I will add methocarbamol as a muscle relaxer. Emergent return precautions discussed. Departure - Departure Disposition: Home, Self Care Clinical Impression: Acute thoracic back pain Qualifiers: Back pain laterality: left Qualified Code(s): M54.6 - Pain in thoracic spine Condition: Stable Record reviewed to determine appropriate education?: Yes Follow-Up: Heather Patiño ARNP [Primary Care Provider] - Prescriptions: Methocarbamol [Robaxin-750] 750 mg PO TID PRN #30 tablet PRN Reason: Spasms Comments: Nuvia I hope that your back continues to feel better. I do think that it is a muscle strain in your thoracic region. I would recommend sleeping on your back if you are able to. Continue to take ibuprofen at home for pain. I have also prescribed some methocarbamol that should help reduce the pain. Gentle heat or massage should also be considered. At any point you develop suddenly severe or worse pain, cannot take deep breaths or have bloody sputum please return to the emergency department
[2019-11-12 20:40] LABS: BILIRUBIN,URINE NEGATIVE (NEGATIVE); CLARITY,URINE CLEAR (CLEAR); GLUCOSE, URINE (UA) NEGATIVE (NEGATIVE); KETONES,URINE (UA) NEGATIVE (NEGATIVE); LEUKOCYTE ESTERASE, URINE NEGATIVE (NEGATIVE); NITRITE,URINE NEGATIVE (NEGATIVE); OCCULT BLOOD,URINE NEGATIVE (NEGATIVE); PH,URINE 6.5 PH (5.0-7.5); PROTEIN,URINE NEGATIVE (NEGATIVE); UROBILINOGEN,URINE 0.2 (NORMAL) E.U./dL (NORMAL)
[2019-11-12 20:42] LABS: HCG UR QUAL NEGATIVE
--- NOTE | 2019-11-12 21:42 | XRAY Report ---
PROCEDURE: Chest 2 View X-Ray INDICATIONS: cough TECHNIQUE: 2 view(s) of the chest. COMPARISON: None. FINDINGS: Surgical changes and devices: None. Lungs and pleura: No pleural effusions or pneumothorax. Lungs are clear. Mediastinum: Mediastinal contours are normal. Heart size is normal. Bones and chest wall: No suspicious bony abnormalities. Soft tissues appear unremarkable. IMPRESSION: No acute cardiopulmonary disease process. Reviewed by: Holly Borja MD, PhD on 11/12/2019 9:40 PM PDT Approved by: Holly Borja MD, PhD on 11/12/2019 9:40 PM PDT Station ID: [id number]
[2019-11-12 21:49] VITALS: BP 140/76
== END 2019-11-12 21:47 | disposition home or self-care (01) ==
LOC: ED 19:21
DX: M54.6 Pain in thoracic spine (principal); I10 Essential (primary) hypertension; E66.9 Obesity, unspecified; Z96.89 Presence of other specified functional implants
CPT/HCPCS: 71046; 81003; 81025; 96372; 99284; J1170; 81001; 87086

== ENCOUNTER 2019-11-25 20:01 | Emergency (ER) | payer MEDICAID ==
[2019-11-25] MEDS ORDERED: predniSONE 20 MG TABLET PO STA (21:43)
[2019-11-25] MEDS ORDERED: DOXYCYCLINE 100 MG TABLET PO STA (21:43)
--- NOTE | 2019-11-25 21:44 | ED Physician Documentation ---
History of Present Illness - Stated complaint Stated Complaint: UNDERARM WOUND - Chief complaint Chief Complaint: Wound - Additonal information Additional information: This is a very pleasant 29-year-old female that comes to the emergency dep artment for worsening hidradenitis suppurativa of her left axilla. She reports that she has involvement of this in both axilla as well as in the groin and buttocks area. She is typically able to use a warm compress or soak and sitz baths and get the abscesses to drain. However when this does not happen she typically requires a short course of steroids and antibiotics. She has been seen by a surgeon but the process of surgery and long-term follow-up complicates her family life they are short for she is delaying surgery until her family is stable. She denies fevers any falls or trauma, any recent abdominal pain or recent antibiotics Review of Systems Constitutional: denies: Fever, Chills Eyes: reports: Reviewed and negative Ears: reports: Reviewed and negative Nose: reports: Reviewed and negative Throat: reports: Reviewed and negative Cardiac: reports: Reviewed and negative GI: reports: Reviewed and negative : reports: Reviewed and negative Skin: reports: Lesions (Multiple scars in the left axillary area. Also multiple small shallow fluctuant ulcerations and abscesses without surrounding cellulitis.) Musculoskeletal: reports: Reviewed and negative Neurologic: reports: Reviewed and negative Psychiatric: reports: Reviewed and negative PD PAST MEDICAL HISTORY - Past Medical History Past Medical History: Yes Respiratory: Asthma Derm: Other - Past Surgical History Past Surgical History: No HEENT: Other - Present Medications Home Medications: Ambulatory Orders Medication Instructions Recorded Confirmed Albuterol 2.5 mg INH Q4H PRN #30 neb 02/05/19 06/11/19 Beclomethasone 80 Mcg [Qvar 80] 2 puffs DAILY 04/23/19 06/11/19 Minocycline HCl 50 mg PO DAILY 06/11/19 06/11/19 Hydrocodone/Acetaminophen 1 - 2 each PO Q6H PRN #14 tablet 07/04/19 [Hydrocodon-Acetaminophen 5-325] Minocycline HCl 100 mg PO BID #60 capsule 07/04/19 predniSONE [Deltasone] 20 mg PO [id number] #21 tab 07/04/19 Methocarbamol [Robaxin-750] 750 mg PO TID PRN #30 tablet 11/12/19 Doxycycline Hyclate 100 mg PO BID #14 capsule 11/25/19 predniSONE [Prednisone] 40 mg PO DAILY #8 tablet 11/25/19 - Allergies Allergies/Adverse Reactions: Allergies Allergy/AdvReac Type Severity Reaction Status Date / Time Penicillins Allergy Emesis Verified 11/25/19 20:07 vancomycin AdvReac Rash Verified 11/25/19 20:07 - Social History Does the pt smoke?: No Smoking Status: Never smoker Does the pt drink ETOH?: No Does the pt have substance abuse?: No - Immunizations Immunizations are current?: Yes - POLST Patient has POLST: No PD ED PE EXPANDED - General General: Alert, No acute distress - Cardiac Cardiac: Regular Rate, Radial strong equal, Pedal strong equal, Cap refill < 2 sec - Respiratory Respiratory: Clear to ausultation gabi. No: Distress, Labored - Derm Derm: Other (Left axilla with multiple old scars. There are also many small painful red bumps somewhat with mild fluctuance but no drainage.) Results - Vitals Vitals: Vital Signs - 24 hr 11/25/19 20:05 Temperature 37.1 C Heart Rate 106 H Respiratory 16 Rate Blood Pressure 144/83 H O2 Saturation 99 Oxygen O2 Source Room air PD MEDICAL DECISION MAKING - ED course Complexity details: considered differential, d/w patient ED course: 29-year-old female presents the emergency department with a flare of her known hidradenitis in the left axilla. There are multiple shallow red painful bumps as well as areas of old scarring. At this time we will start a trial of steroids as well as doxycycline. I have advised to continue warm compress and s its baths to see if any of the lesions will open and drain. If not markedly improved she may need to return to the emergency department for incision and drainage.I have also encouraged close follow-up with surgery in the long-term to discuss long-term surgical management of this recurrent problem Departure - Departure Disposition: 01 Home, Self Care Clinical Impression: Hidradenitis suppurativa of left axilla Condition: Stable Record reviewed to determine appropriate education?: Yes Prescriptions: Doxycycline Hyclate 100 mg PO BID #14 capsule predniSONE [Prednisone] 40 mg PO DAILY #8 tablet Comments: Nuvia I hope that your symptoms are improving soon. Let us start you on a 7- day course of doxycycline and 5 days of prednisone. Your first doses were given here in the emergency department. In the long-term I think continuing to follow-up with surgery regarding your hidradenitis is going to be very helpful. In the short-term continue to do the warm sitz baths and apply warm compress to your axilla area. If you have concerned that there is an abscess that is not draining or the antibiotics are not making you better then please return to the emergency department
[2019-11-25 21:56] VITALS: BP 138/97
== END 2019-11-25 21:57 | disposition home or self-care (01) ==
LOC: ED 20:01
DX: L73.2 Hidradenitis suppurativa (principal)
CPT/HCPCS: 99282; 99283; A9270; J7512

== ENCOUNTER 2020-02-15 16:31 | Emergency (ER) | payer MEDICAID, OTHER ==
[2020-02-15] MEDS ORDERED: KETOROLAC 30 MG/ML VIAL IVP STA (17:05)
[2020-02-15] MEDS ORDERED: METOCLOPRAMIDE 10 MG/2 ML VIAL IVP STA (17:05)
[2020-02-15] MEDS ORDERED: SODIUM CHLORIDE 0.9% 1,000 ML IV STA (17:05)
--- NOTE | 2020-02-15 17:07 | ED Physician Documentation ---
History of Present Illness - Stated complaint Stated Complaint: N/V - Chief complaint Chief Complaint: General - History obtained from History obtained from: Patient - Additonal information Additional information: 29-year-old woman with history of morbid obesity, hidradenitis suppurativa, asthma developed vomiting early this morning. Is associated with stomach cramps and headache but no diarrhea. No fevers. No neck stiffness. She thinks it is because her hidradenitis is infected. Review of Systems Ten Systems: 10 systems reviewed and negative Constitutional: denies: Fever, Chills Ears: reports: Reviewed and negative Nose: reports: Reviewed and negative Throat: reports: Reviewed and negative Cardiac: reports: Reviewed and negative Respiratory: reports: Reviewed and negative PD PAST MEDICAL HISTORY - Past Medical History Respiratory: Asthma Derm: Other - Past Surgical History Past Surgical History: No HEENT: Other - Present Medications Home Medications: Ambulatory Orders Medication Instructions Recorded Confirmed Albuterol 2.5 mg INH Q4H PRN #30 neb 02/05/19 06/11/19 Beclomethasone 80 Mcg [Qvar 80] 2 puffs DAILY 04/23/19 06/11/19 Minocycline HCl 50 mg PO DAILY 06/11/19 06/11/19 Hydrocodone/Acetaminophen 1 - 2 each PO Q6H PRN #14 tablet 07/04/19 [Hydrocodon-Acetaminophen 5-325] Minocycline HCl 100 mg PO BID #60 capsule 07/04/19 predniSONE [Deltasone] 20 mg PO [id number] #21 tab 07/04/19 Methocarbamol [Robaxin-750] 750 mg PO TID PRN #30 tablet 11/12/19 Doxycycline Hyclate 100 mg PO BID #14 capsule 11/25/19 predniSONE [Prednisone] 40 mg PO DAILY #8 tablet 11/25/19 Metoclopramide [Reglan] 10 mg PO Q6H PRN #20 tablet 02/15/20 Minocycline HCl 100 mg PO BID #14 capsule 02/15/20 predniSONE [Deltasone] 20 mg PO [id number] #21 tab 02/15/20 - Allergies Allergies/Adverse Reactions: Allergies Allergy/AdvReac Type Severity Reaction Status Date / Time Penicillins Allergy Emesis Verified 02/15/20 16:48 vancomycin AdvReac Rash Verified 02/15/20 16:48 - Social History Does the pt smoke?: No Smoking Status: Never smoker Does the pt drink ETOH?: No Does the pt have substance abuse?: No - Immunizations Immunizations are current?: Yes - POLST Patient has POLST: No PD ED PE NORMAL - Vitals Vital signs reviewed: Yes - General General: Alert and oriented X 3, No acute distress - HEENT HEENT: PERRL, EOMI - Neck Neck: Supple, no meningeal sign, No bony TTP - Cardiac Cardiac: RRR, No murmur - Respiratory Respiratory: No respiratory distress, Clear bilaterally - Abdomen Abdomen: Non tender - Derm Derm: Other (She certainly has a bad case of hidradenitis in both axillae, lots of fistula formation and some purulent areas without active abscesses. Also a lot of scar tissue.) - Neuro Neuro: Alert and oriented X 3, No motor deficit, No sensory deficit, Normal speech Results - Vitals Vitals: Vital Signs - 24 hr 02/15/20 16:45 Temperature 36.7 C Heart Rate 108 H Respiratory 16 Rate Blood Pressure 151/94 H O2 Saturation 100 Oxygen O2 Source Room air - Labs Labs: Laboratory Tests 02/15/20 17:08 Urine Color YELLOW Urine Clarity HAZY Urine pH 7.0 Ur Specific [place] 1.015 Urine Protein NEGATIVE Urine Glucose (UA) NEGATIVE Urine Ketones NEGATIVE Urine Occult Blood NEGATIVE Urine Nitrite NEGATIVE Urine Bilirubin NEGATIVE Urine Urobilinogen 0.2 (NORMAL) Ur Leukocyte Esterase TRACE H Urine RBC 0-5 Urine WBC 0-3 Ur Squamous Epith Cells MANY Squamous H Urine Bacteria Few Ur Microscopic Review INDICATED Urine Culture Comments NOT INDICATED Urine HCG, Qual NEGATIVE PD MEDICAL DECISION MAKING - ED course ED course: 29-year-old woman with pretty bad case of hidradenitis suppurativa presents with benign sounding headache, nothing in the history or physical to suggest meningitis or subarachnoid hemorrhage. Some vomiting. She feels it is related to an exacerbation of her hidradenitis. After IV fluids, Toradol, Reglan she felt much better. Departure - Departure Disposition: 01 Home, Self Care Clinical Impression: Hidradenitis suppurativa of left axilla Vomiting Qualifiers: Vomiting type: unspecified Vomiting Intractability: non-intractable Nausea presence: with nausea Qualified Code(s): R11.2 - Nausea with vomiting, unspecified Condition: Good Record reviewed to determine appropriate education?: Yes Instructions: ED Nausea Vomiting Prescriptions: predniSONE [Deltasone] 20 mg PO [id number] #21 tab Minocycline HCl 100 mg PO BID #14 capsule Metoclopramide [Reglan] 10 mg PO Q6H PRN #20 tablet PRN Reason: nausea or headache Comments: Return if worse or if new symptoms develop. You can take the metoclopramide for either headache and/or nausea it works for both. Return for new or worsening symptoms. Follow-up with [facility] as discussed for specific management of your hidradenitis.
[2020-02-15 17:28] LABS: BILIRUBIN,URINE NEGATIVE (NEGATIVE); GLUCOSE, URINE (UA) NEGATIVE (NEGATIVE); KETONES,URINE (UA) NEGATIVE (NEGATIVE); LEUKOCYTE ESTERASE, URINE TRACE (NEGATIVE); NITRITE,URINE NEGATIVE (NEGATIVE); OCCULT BLOOD,URINE NEGATIVE (NEGATIVE); PROTEIN,URINE NEGATIVE (NEGATIVE); UROBILINOGEN,URINE 0.2 (NORMAL) E.U./dL (NORMAL)
[2020-02-15 17:29] LABS: CLARITY,URINE HAZY (CLEAR)
[2020-02-15 17:31] LABS: HCG UR QUAL NEGATIVE
[2020-02-15 17:45] LABS: BACTERIA,URINE Few /HPF (None Seen); RBC,URINE 0-5 /HPF (0-5); SQUAMOUS EPITHELIAL CELL,UR MANY Squamous (<= Few)
[2020-02-15] MEDS ORDERED: DOXYCYCLINE 100 MG TABLET PO STA (18:57)
[2020-02-15] MEDS ORDERED: predniSONE 20 MG TABLET PO STA (18:57)
[2020-02-15 19:17] VITALS: BP 108/55
== END 2020-02-15 19:17 | disposition home or self-care (01) ==
LOC: ED 16:31
DX: L73.2 Hidradenitis suppurativa (principal); R11.11 Vomiting without nausea; E66.9 Obesity, unspecified; J45.909 Unspecified asthma, uncomplicated
CPT/HCPCS: 81001; 81025; 96361; 96374; 96375; 99283; A9270; J2765; J7512; 80053; 81003; 83690; 85025; 87086

== ENCOUNTER 2020-07-21 17:53 | Emergency (ER) | payer OTHER ==
--- OUTSIDE RECORDS SUMMARY | 2020-07-21 17:57 | EXTERNAL MEDICAL SUMMARY RPT | Continuity of Care Document ---
:1990 Demographics Phone Unavailable Preferred Language Yakut Marital Status Unknown Yarsanism Affiliation Unknown Race Unknown Ethnic Group Unknown Author Organization [place] Address [address] [phone] Phone Care Team Providers Name Role Phone Thomas Unavailable Unavailable Allergies Encounters Medications date description facility 20200602 Prednisone [address] [facility] spital 20200602 Minocycline 100 MG Oral Tablet [facility] Problems Procedures date description facility [id number] [facility] [id number] [facility] Results Vital Signs date measurement value source 20200602 weight_standard 146.51 lb 20200602 weight_metric 66.46 kg 20200602 temperature_standard 97.8 F 20200602 temperature_metric 36.56 C 20200602 respiration_rate 16 /min 20200602 height_standard 67 in 20200602 height_metric 170.18 cm 20200602 heart_rate 80 /min 20200602 BP_systolic 132 mm[Hg] 20200602 BP_diastolic 72 mm[Hg] 20200602 BMI 50.5 kg/m2 20200718 weight_standard 147.42 lb 20200718 weight_metric 66.87 kg 20200718 temperature_standard 98.1 F 20200718 temperature_metric 36.72 C 20200718 respiration_rate 16 /min 20200718 height_standard 67 in 20200718 height_metric 170.18 cm 20200718 heart_rate 100 /min 20200718 BP_systolic 142 mm[Hg] 20200718 BP_diastolic 96 mm[Hg] 20200718 BMI 50.8 kg/m2
--- OUTSIDE RECORDS SUMMARY | 2020-07-21 18:03 | EXTERNAL MEDICAL SUMMARY RPT | Continuity of Care Document ---
:1990 Demographics Phone Unavailable Preferred Language Irish Marital Status Unknown Voodoo Affiliation Unknown Race Unknown Ethnic Group Unknown Author Organization [place] Address [address] [phone] Phone Care Team Providers Name Role Phone Thomas Unavailable Unavailable Allergies Encounters Medications date description facility 20200602 Prednisone 20 MG Oral Tablet [facility] 20200602 Minocycline 100 MG Oral Tablet [facility] Problems Procedures date description facility [id number] [facility] 20200602 [facility] Results Vital Signs date measurement value [...]
[2020-07-21] MEDS ORDERED: oxyCODONE 5 MG TABLET PO STA (19:25)
[2020-07-21] MEDS ORDERED: CLINDAMYCIN 150 MG CAPSULE PO STA (19:25)
--- NOTE | 2020-07-21 19:29 | ED Physician Documentation ---
History of Present Illness - Stated complaint Stated Complaint: SKIN IRRITATION - Chief complaint Chief Complaint: Allergic Rx - History obtained from History obtained from: Patient - History of Present Illness Timing: Today Pain level max: 8 Pain level now: 8 - Additonal information Additional information: 30-year-old female presents to the emergency department complaint of bilateral axilla pain. She states she has a longstanding history of hidradenitis suppurativa. She states that when she flares she develops pain and drainage. Nothing makes it better or worse. No fevers. No chills. Denies any possibility of . She had been on minocycline in the past as well as doxycycline, but states that this did not help last time. She states that clindamycin is worked well in the past. Review of Systems Constitutional: denies: Fever, Chills GI: denies: Vomiting, Diarrhea Skin: denies: Rash Musculoskeletal: denies: Neck pain, Back pain Neurologic: denies: Headache PD PAST MEDICAL HISTORY - Past Medical History Past Medical History: Yes Respiratory: Asthma Derm: Other - Past Surgical History Past Surgical History: No HEENT: Other - Present Medications Home Medications: Ambulatory Orders Medication Instructions Recorded Confirmed Albuterol 2.5 mg INH Q4H PRN #30 neb 02/05/07/21/20 Oxycodone HCl/Acetaminophen 1 - 2 each PO Q6H PRN #14 tablet 07/21/20 [Percocet 5-325 mg Tablet] clindamycin HCL [Cleocin HCl] 300 mg PO Q6H #40 cap 07/21/20 - Allergies Allergies/Adverse Reactions: Allergies Allergy/AdvReac Type Severity Reaction Status Date / Time Penicillins Allergy Emesis Verified 07/21/20 18:05 vancomycin AdvReac Rash Verified 07/21/20 18:05 - Social History Does the pt smoke?: No Smoking Status: Never smoker Does the pt drink ETOH?: No Does the pt have substance abuse?: No - Immunizations Immunizations are current?: Yes - POLST Patient has POLST: No PD ED PE NORMAL - Vitals Vital signs reviewed: Yes - General General: Alert and oriented X 3, No acute distress, Well developed/nourished - HEENT HEENT: PERRL, Moist mucous membranes - Neck Neck: Supple, no meningeal sign - Cardiac Cardiac: RRR, Strong equal pulses - Respiratory Respiratory: No respiratory distress, Clear bilaterally - Abdomen Abdomen: Soft, Non tender, Non distended - Derm Derm: Warm and dry - Extremities Extremities: Other (Patient with multiple small draining wounds to the bilateral axilla. Has many scars to the area as well. No drainable abscess) - Neuro Neuro: Alert and oriented X 3 - Psych Psych: Normal mood, Normal affect Results - Vitals Vitals: Vital Signs - 24 hr 07/21/20 07/21/20 18:05 19:41 Temperature 36.7 C Heart Rate 85 80 Respiratory 16 16 Rate Blood Pressure 130/90 H 125/85 H O2 Saturation 100 100 Oxygen O2 Source Room air PD MEDICAL DECISION MAKING - ED course Complexity details: considered differential, d/w patient, d/w family ED course: Patient with a flare of her hidradenitis suppurativa. Will place on pain medication and clindamycin for home. Patient counseled regarding signs and symptoms for which I believe and urgent re-evaluation would be necessary. Patient with good understanding of and agreement to plan and is comfortable going home at this time This document was made in part using voice recognition software. While efforts are made to proofread this document, sound alike and grammatical errors may occur. I am prescribing a short course of short-acting opioid pain medication for this patient. I have reviewed the patients PRESS SET UP and no concerning findings were noted. I have discussed that the opioids are for short term therapy only, and will not be refilled from the ED. Departure - Departure Disposition: 01 Home, Self Care Clinical Impression: Hidradenitis suppurativa Condition: Good Instructions: Hidradenitis Suppurativa Follow-Up: Provider,Other [Primary Care Provider] - Within 1 week Prescriptions: clindamycin HCL [Cleocin HCl] 300 mg PO Q6H #40 cap Oxycodone HCl/Acetaminophen [Percocet 5-325 mg Tablet] 1 - 2 each PO Q6H PRN #14 tablet PRN Reason: pain Comments: Take all antibiotics until gone. Return if you worsen. Follow-up with your doctor for further care. I am prescribing a short course of narcotic pain medication for you. These are potentially dangerous and addictive medications that should be used carefully. These medications may constipate you. Take an [id number] stool softener (docusate) twice daily with plenty of water while taking these medications. If you go 24 hours without a bowel movement, take [id number] miralax, per package instructions. Do not drink or drive while taking these medications. If you received narcotic or sedating medications while in the emergency department, do not drive for 24 hours. Store this medication in a safe, secure place and out of reach of children. It is a violation of federal law to give or sell this medication to another person or to use in a manner other than prescribed. The ED will not refill narcotic prescriptions, including prescriptions lost or stolen. To dispose of unwanted medications: 1. [facility] [address] in [place] has a medication drop box. They accept prescription medications (in pill form) Saturday through Saturday 9:00 a.m. to 5:00 p.m. 2. [facility] [employer] accepts prescription medications (in pill form only) for disposal year round. Call for more information. 3. Contact the [facility] for the next [facility] sponsored prescription drug collection event. , [phone], or [phone]; Discharge Date/Time: 07/21/20 19:41
[2020-07-21 21:44] VITALS: BP 125/85
== END 2020-07-21 19:41 | disposition home or self-care (01) ==
LOC: ED 17:53
DX: L73.2 Hidradenitis suppurativa (principal)
CPT/HCPCS: 99282; 99284; A9270

== ENCOUNTER 2020-10-26 19:02 | Emergency (ER) | payer OTHER ==
[2020-10-26] MEDS ORDERED: predniSONE 20 MG TABLET PO STA (20:12)
[2020-10-26] MEDS ORDERED: ALBUTEROL NEB 2.5 MG/3 ML INH STA (20:12)
[2020-10-26] MEDS ORDERED: BENZONATATE 100 MG CAPSULE PO STA (20:13)
[2020-10-26] MEDS ORDERED: PROMETHAZINE 25 MG/1 ML VIAL IM STA (20:13)
--- NOTE | 2020-10-26 20:34 | ED Physician Documentation ---
History of Present Illness - Stated complaint Stated Complaint: COUGH/SOA/VOMITING - Chief complaint Chief Complaint: Resp - History obtained from History obtained from: Patient - History of Present Illness Timing: How many days ago (2) Pain level max: 0 Pain level now: 0 - Additonal information Additional information: Patient with cough and increasing difficulty breathing for the past 2 days. History of asthma. Worse with exertion, better with rest. She states that she has had proximal and symptoms of coughing that have led to emesis. No fevers. No chills. No rhinorrhea or congestion. Denies any possibility of . No Covid exposure. Review of Systems Constitutional: denies: Fever, Chills Nose: denies: Rhinorrhea / runny nose, Congestion Respiratory: reports: Dyspnea, Cough, Wheezing GI: reports: Nausea. denies: Vomiting, Diarrhea : denies: Now EGA Skin: denies: Rash Musculoskeletal: denies: Neck pain, Back pain Neurologic: denies: Headache PD PAST MEDICAL HISTORY - Past Medical History Respiratory: Asthma Derm: Other - Past Surgical History Past Surgical History: No HEENT: Other - Present Medications Home Medications: Ambulatory Orders Medication Instructions Recorded Confirmed Albuterol 2.5 mg INH Q4H PRN #30 neb 02/05/19 07/21/20 Oxycodone HCl/Acetaminophen 1 - 2 each PO Q6H PRN #14 tablet 07/21/20 [Percocet 5-325 mg Tablet] clindamycin HCL [Cleocin HCl] 300 mg PO Q6H #40 cap 07/21/20 Albuterol Sulf [Ventolin Hfa 1 - 2 puffs INH Q4HR PRN #1 inhaler 10/26/20 Inhaler] Benzonatate [Tessalon] 200 mg PO TID PRN #30 cap 10/26/20 Ondansetron Odt [Zofran] 4 mg TL Q6H PRN #10 tablet 10/26/20 predniSONE [Deltasone] 10 mg PO [id number] #42 tab 10/26/20 - Allergies Allergies/Adverse Reactions: Allergies Allergy/AdvReac Type Severity Reaction Status Date / Time Penicillins Allergy Emesis Verified 10/26/20 19:19 Iodine and Iodide Containing AdvReac Emesis Verified 10/26/20 19:19 Produc vancomycin AdvReac Rash Verified 10/26/20 19:19 - Social History Does the pt smoke?: No Smoking Status: Never smoker Does the pt drink ETOH?: No Does the pt have substance abuse?: No - Immunizations Immunizations are current?: Yes - POLST Patient has POLST: No PD ED PE NORMAL - Vitals Vital signs reviewed: Yes - General General: Alert and oriented X 3, No acute distress, Well developed/nourished - HEENT HEENT: Moist mucous membranes - Neck Neck: Supple, no meningeal sign - Cardiac Cardiac: RRR, Strong equal pulses - Respiratory Respiratory: No respiratory distress, Other (Mild diminished breath sounds bilat erally, mild wheezing.) - Abdomen Abdomen: Soft, Non tender, Non distended - Derm Derm: Warm and dry - Extremities Extremities: No edema - Neuro Neuro: Alert and oriented X 3 - Psych Psych: Normal mood, Normal affect Results - Vitals Vitals: Oxygen O2 Source Room air - Rads (name of study) cxr Radiology: Final report received, EMP read contemporaneously, See rad report PD MEDICAL DECISION MAKING - ED course Complexity details: reviewed results, re-evaluated patient, considered differential, d/w patient ED course: Patient feels better after steroids, Phenergan and a breathing treatment. Also given Tessalon Perles. Appears to be a viral upper respiratory infection. We will place her on a steroid taper for home and continue supportive care. Patient counseled regarding signs and symptoms for which I believe and urgent re-evaluation would be necessary. Patient with good understanding of and agreement to plan and is comfortable going home at this time This document was made in part using voice recognition software. While efforts are made to proofread this document, sound alike and grammatical errors may occur. Chest x-ray is consistent with viral disease. Departure - Departure Disposition: Home, Self Care Clinical Impression: Viral URI with cough Asthma Qualifiers: Asthma severity: unspecified severity Asthma persistence: unspecified Asthma complication type: with acute exacerbation Qualified Code(s): J45.901 - Unspecified asthma with (acute) exacerbation Condition: Good Instructions: ED Viral Syndrome Follow-Up: your,doctor in 1 week [Other] Prescriptions: Albuterol Sulf [Ventolin Hfa Inhaler] 1 - 2 puffs INH Q4HR PRN #1 inhaler PRN Reason: Shortness Of Air/Wheezing predniSONE [Deltasone] 10 mg PO [id number] #42 tab Benzonatate [Tessalon] 200 mg PO TID PRN #30 cap PRN Reason: Cough Ondansetron Odt [Zofran] 4 mg TL Q6H PRN #10 tablet PRN Reason: Nausea / Vomiting Comments: Continue your albuterol at home. Return if you worsen. Follow-up with your doctor as needed for further care. Your x-ray does not show any acute abnormalities tonight. [facility] Discharge Date/Time: 10/26/20 21:50
--- NOTE | 2020-10-26 21:27 | XRAY Report ---
PROCEDURE: Chest 2 View X-Ray INDICATIONS: cough TECHNIQUE: 2 view(s) of the chest. COMPARISON: 11/12/2019. FINDINGS: Surgical changes and devices: None. Lungs and pleura: No pleural effusions or pneumothorax. Increased bronchovascular markings in bilate ral hilar region are seen with mild bronchial wall thickening. Subtle increased opacity in right lowe r lung field is seen, concerning for early developing infiltrates. Mediastinum: Mediastinal contours are normal. Heart size is normal. Bones and chest wall: No suspicious bony abnormalities. Soft tissues appear unremarkable. IMPRESSION: Finding is suggestive of mild reactive airway disease such as bronchitis or viral illnes s. Early developing right lower lobe infiltrate cannot be entirely excluded. No pleural effusion or p neumothorax. Reviewed by: Dell Shaffer MD on 10/26/2020 9:26 PM PDT Approved by: Dell Shaffer MD on 10/26/2020 9:26 PM PDT Station ID: [id number]
[2020-10-26 21:51] VITALS: BP 132/81
== END 2020-10-26 21:50 | disposition home or self-care (01) ==
LOC: ED 19:02
DX: J06.9 Acute upper respiratory infection, unspecified (principal); J45.901 Unspecified asthma with (acute) exacerbation; Z20.822 Contact with and (suspected) exposure to COVID-19
CPT/HCPCS: 71046; 87635; 94640; 96372; 99283; 99284; A9270; J7512

== ENCOUNTER 2022-11-21 16:45 | Emergency (ER) | payer OTHER ==
[2022-11-21 17:10] VITALS: BP 151/72; O2SAT 98
--- NOTE | 2022-11-21 17:33 | ED Physician Documentation ---
PD HPI URI - Stated complaint Stated Complaint: SINUS PRESSURE - Chief complaint Chief Complaint: General - History obtained from History obtained from: Patient - Additional information Additional information: Patient is a 32-year-old female presenting for evaluation of bilateral sinus tenderness and ear pressure that has been ongoing for the past 2+ weeks. Patient states that she was seen in an emergency department while traveling approximately 10 days ago and given a course of Augmentin which she completed on Saturday. She states that some of her symptoms improved such as the pain but she overall feels still a lot of pressure especially in her ears. She has been using saline rinses, Shira pot and Flonase without any improvement. She has also tried Sudafed. She denies fever. She reports having continued green- yellow drainage from her nose. Denies chest pain or difficulty breathing. Daughter is here also ill with URI symptoms. Review of Systems Constitutional: denies: Fever Ears: reports: Ear pain Nose: reports: Congestion, Sinus pressure / pain Throat: denies: Sore throat Cardiac: denies: Chest pain / pressure Respiratory: denies: Dyspnea GI: denies: Abdominal Pain, Vomiting PD PAST MEDICAL HISTORY - Past Medical History Respiratory: Asthma Derm: Other - Past Surgical History Past Surgical History: No HEENT: Other - Present Medications Home Medications: Ambulatory Orders Medication Instructions Recorded Confirmed Albuterol 2.5 mg INH Q4H PRN #30 neb 02/05/19 07/21/20 Oxycodone HCl/Acetaminophen 1 - 2 each PO Q6H PRN #14 tablet 07/21/20 [Percocet 5-325 mg Tablet] clindamycin HCL [Cleocin HCl] 300 mg PO Q6H #40 cap 07/21/20 Albuterol Sulf [Ventolin Hfa 1 - 2 puffs INH Q4HR PRN #1 inhaler 10/26/20 Inhaler] Benzonatate [Tessalon] 200 mg PO TID PRN #30 cap 10/26/20 Ondansetron Odt [Zofran] 4 mg TL Q6H PRN #10 tablet 10/26/20 predniSONE [Deltasone] 10 mg PO [id number] #42 tab 10/26/20 clindamycin HCL [Cleocin HCl] 300 mg PO Q6H #40 cap 09/23/22 predniSONE [Deltasone] 10 mg PO [id number] #42 tab 09/23/22 levoFLOXacin [Levaquin] 750 mg PO DAILY 7 Days #21 tablet 11/21/22 - Allergies Allergies/Adverse Reactions: Allergies Allergy/AdvReac Type Severity Reaction Status Date / Time Penicillins Allergy Emesis Verified 11/21/22 16:59 Iodine and Iodide Containing AdvReac Emesis Verified 11/21/22 16:59 Produc vancomycin AdvReac Rash Verified 11/21/22 16:59 - Social History Does the pt smoke?: No Smoking Status: Never smoker Does the pt drink ETOH?: No Does the pt have substance abuse?: No - Immunizations Immunizations are current?: Yes - POLST Patient has POLST: No PD ED PE NORMAL - General General: Alert and oriented X 3, No acute distress, Well developed/nourished - HEENT HEENT: Atraumatic, Moist mucous membranes, Pharynx benign (No oral swelling, erythema or exudate), Other (Tenderness over bilateral maxillary sinuses with no overlying erythema or fullness). No: Ears normal (Bilateral serous otitis media) - Neck Neck: Supple, no meningeal sign - Cardiac Cardiac: RRR, No murmur - Respiratory Respiratory: No respiratory distress, Clear bilaterally - Derm Derm: Warm and dry - Neuro Neuro: Normal speech Results - Vitals Vitals: Vital Signs - 24 hr 11/21/22 16:59 Temperature 36.5 C Heart Rate 105 H Respiratory 20 Rate Blood Pressure 151/72 H O2 Saturation 98 Oxygen O2 Source Room air PD Medical Decision Making - ED course ED course: Patient is a 32-year-old Female presenting for evaluation of greater than 2 weeks of sinus pressure and ear discomfort. She has trialed a course of Augmentin without resolution of her symptoms. Her vital signs are stable. She is otherwise well-appearing, not septic. No labored breathing. She has already trialed a course of Augmentin without Resolution of her symptoms. Will give second line antibiotic of Levaquin. Patient counseled on treatment plan as well as concerning symptoms to return for. Departure - Departure Disposition: 01 Home, Self Care Clinical Impression: Acute sinusitis Condition: Stable Instructions: ED Sinusitis Abx Tx Prescriptions: levoFLOXacin [Levaquin] 750 mg PO DAILY 7 Days #21 tablet Comments: You have been started on antibiotic for a sinus infection Given the duration of your symptoms as well as the failure of response to a course of Augmentin. Continue with acetaminophen or ibuprofen as needed for fevers or inflammation. Continue with saline rinses and Flonase. If your symptoms are not improving I would recommend follow-up with your primary care for referral to ENT. Prescription was sent to [facility]. Forms: PCP List
== END 2022-11-21 18:08 | disposition home or self-care (01) ==
LOC: ED 16:45
DX: J01.00 Acute maxillary sinusitis, unspecified (principal)
CPT/HCPCS: 99282; 99283

== ENCOUNTER 2022-12-29 08:38 | Emergency (ER) | payer OTHER ==
[2022-12-29 09:13] VITALS: BP 121/77; O2SAT 99
--- NOTE | 2022-12-29 09:33 | ED Physician Documentation ---
PD HPI LOWER EXT INJURY - Stated complaint Stated Complaint: RT FT PX - Chief complaint Chief Complaint: Ext Problem - History obtained from History obtained from: Patient - History of Present Illness PD HPI LOW EXT INJURY LOCATION: Right, Toe Type of injury: Other (onset without injury of pain markedly at MCP of the right great toe. No prior similar.). No: Fall, Twist, Blunt / blow Timing - onset: Yesterday Timing - details: Gradual onset, Still present Worsened by: Moving, Palpating Associated symptoms: Swelling. No: Weakness, Numbness, Discolored Similar symptoms before: Has not had sx before Review of Systems Constitutional: denies: Fever, Chills Skin: denies: Lesions, Abrasion (s), Laceration (s) Neurologic: denies: Focal weakness, Numbness PD PAST MEDICAL HISTORY - Past Medical History Past Medical History: Yes Respiratory: Asthma Derm: Other - Past Surgical History Past Surgical History: No HEENT: Other - Present Medications Home Medications: Ambulatory Orders Medication Instructions Recorded Confirmed Albuterol 2.5 mg INH Q4H PRN #30 neb 02/05/19 07/21/20 Oxycodone HCl/Acetaminophen 1 - 2 each PO Q6H PRN #14 tablet 07/21/20 [Percocet 5-325 mg Tablet] clindamycin HCL [Cleocin HCl] 300 mg PO Q6H #40 cap 07/21/20 Albuterol Sulf [Ventolin Hfa 1 - 2 puffs INH Q4HR PRN #1 inhaler 10/26/20 Inhaler] Benzonatate [Tessalon] 200 mg PO TID PRN #30 cap 10/26/20 Ondansetron Odt [Zofran] 4 mg TL Q6H PRN #10 tablet 10/26/20 predniSONE [Deltasone] 10 mg PO [id number] #42 tab 10/26/20 clindamycin HCL [Cleocin HCl] 300 mg PO Q6H #40 cap 09/23/22 predniSONE [Deltasone] 10 mg PO [id number] #42 tab 09/23/22 levoFLOXacin [Levaquin] 750 mg PO DAILY 7 Days #21 tablet 11/21/22 Colchicine 0.6 mg PO BID PRN #6 tablet 12/29/22 HYDROcod/ACETAM 5/325 [[place] 5/325] 1 ea PO Q4H PRN #18 tablet 12/29/22 - Allergies Allergies/Adverse Reactions: Allergies Allergy/AdvReac Type Severity Reaction Status Date / Time Penicillins Allergy Emesis Verified 12/29/22 09:09 Iodine and Iodide Containing AdvReac Emesis Verified 12/29/22 09:09 Produc vancomycin AdvReac Rash Verified 12/29/22 09:09 - Social History Does the pt smoke?: No Smoking Status: Never smoker Does the pt drink ETOH?: No Does the pt have substance abuse?: No - Immunizations Immunizations are current?: Yes - POLST Patient has POLST: No PD ED PE NORMAL - Vitals Vital signs reviewed: Yes - General General: Alert and oriented X 3, Well developed/nourished - Derm Derm: Normal color, Warm and dry - Extremities Extremities: Other (very tender to even light touch at medial and plantar aspect of the great toe MTP. Some swelling. No redness nor skin sores. ) - Neuro Neuro: No motor deficit, No sensory deficit Results - Vitals Vitals: Oxygen O2 Source Room air PD Medical Decision Making - ED course Complexity details: considered differential (location and marked tenderness without injury nor skin lesions suggests likely gout. Will treat that way. ), d/w patient Departure - Departure Disposition: 01 Home, Self Care Clinical Impression: Great toe pain Condition: Stable Record reviewed to determine appropriate education?: Yes Instructions: ED Arthritis Gout Prescriptions: Colchicine 0.6 mg PO BID PRN #6 tablet PRN Reason: Pain 1-4 HYDROcod/ACETAM 5/325 [[place] 5/325] 1 ea PO Q4H PRN #18 tablet PRN Reason: Pain Comments: This clinically seems to be likely an episode of gout although form of tendinitis or sprain could be possible to. Given the degree of tenderness though it does seem more like a gout. If this is an isolated episode and improves without recurrence in the near future then no further intervention needed. If you have recurring episodes over the next several months or so then further blood testing or treatment can be done to try to prevent them. At this point would use a combination of anti-inflammatories. He can continue with ibuprofen 600 mg 3 times daily with food. You could add a different type of anti-inflammatory called colchicine twice daily as well. Also to take with food. Hold on the colchicine if your stomach feels too upset. In addition Tylenol 500 to 650 mg 4 times daily for pain or the hydrocodone/acetaminophen if needed for worse pain. Firm soled shoe or what ever is comfortable for walking. Recheck if not improving well over the next several days and resolved by 3 to 5 days. I sent your prescriptions to your preferred pharmacy. I am prescribing a short course of narcotic pain medication for you. These are potentially dangerous and addictive medications that should be used carefully. These medications may constipate you. Take an [id number] stool softener such as docusate twice daily with plenty of water while taking these medications. If you go 24 hours without a bowel movement, take [id number] MiraLAX, per package instructions. Do not drink or drive while taking these medications. If you received narcotic or sedating medications while in the emergency department do not drive for 24 hours. Store this medication in a safe, secure place and out of reach of children. It is a violation of federal law to give or sell this medication to another person or to use in a manner other than prescribed. The ED will not refill narcotic prescriptions, including prescriptions lost or stolen. You can dispose of unwanted medications at the [facility]'s office or at several pharmacies such as [facility] Forms: PCP List Discharge Date/Time: 12/29/22 10:50
[2022-12-29] MEDS ORDERED: ACETAMINOPHEN 325 MG TABLET PO STA (09:58)
[2022-12-29] MEDS ORDERED: dexAMETHasone 4 MG TABLET PO STA (09:58)
== END 2022-12-29 10:50 | disposition home or self-care (01) ==
LOC: ED 08:38
DX: M79.674 Pain in right toe(s) (principal); Z79.899 Other long term (current) drug therapy
CPT/HCPCS: 99282; 99283; A9270; J8540

== ENCOUNTER 2023-04-03 15:02 | Emergency (ER) | payer OTHER ==
--- NOTE | 2023-04-03 15:49 | XRAY Report ---
PROCEDURE: Chest 2V INDICATIONS: wet cough x 4 days TECHNIQUE: 2 views of the chest were acquired. COMPARISON: Chest x-ray, 10/26/2020. FINDINGS: Surgical changes and devices: None. Lungs and pleura: No pleural effusions or pneumothorax. Lungs are clear. Mediastinum: Mediastinal contours appear normal. Heart size is normal. Bones and chest wall: No suspicious bony lesions. Overlying soft tissues appear unremarkable. IMPRESSION: No acute cardiopulmonary process. Reviewed by: Sully Paulino MD on 04/03/2023 3:48 PM PST Approved by: Sully Paulino MD on 04/03/2023 3:48 PM PST Station ID: [id number]
[2023-04-03 17:05] LABS: B. PARAPERTUSSIS- RESP PCR PAN NOT DETECTED; B. PERTUSSIS- RESP PCR PANEL NOT DETECTED; C. PNEUMONIAE- RESP PCR PANEL NOT DETECTED; CORONAVIRUS 229E-RESP PCR NOT DETECTED; CORONAVIRUS HKU1-RESP PCR NOT DETECTED; CORONAVIRUS NL63-RESP PCR NOT DETECTED; CORONAVIRUS OC43-RESP PCR NOT DETECTED; HUMAN METAPNEUMOVIRUS NOT DETECTED; INFLUENZA A- RESP PCR PANEL NOT DETECTED; INFLUENZA B - RESP PCR PANEL NOT DETECTED; M. PNEUMONIAE- RESP PCR PANEL NOT DETECTED; PARAINFLUENZA VIRUS 1 NOT DETECTED; PARAINFLUENZA VIRUS 2 NOT DETECTED; PARAINFLUENZA VIRUS 3 NOT DETECTED; PARAINFLUENZA VIRUS 4 NOT DETECTED; RHINOVIRUS/ENTEROVIRUS DETECTED; RSV- RESP PCR PANEL NOT DETECTED
[2023-04-03 17:07] LABS: SARS-CoV-2 -RESP PCR PANEL DETECTED
[2023-04-03 18:30] VITALS: BP 136/82; O2SAT 100
--- NOTE | 2023-04-03 19:04 | ED Physician Documentation ---
History of Present Illness - Stated complaint Stated Complaint: DISORIENTED,SOA - Chief complaint Chief Complaint: General - Additonal information Additional information: 33-year-old female with history of asthma presents emergency department for what she describes as ongoing fevers chills malaise. Patient reports that she has been around sick people at work and within her household she feels like she is having a hard time keeping fluids down due to persistent nausea vomiting has been having also ongoing diarrhea. She did not get the flu shot this year. She denies any chest pain she is having some mild shortness of breath that she would describe it but she more so says that it is a burning when she takes a deep breath and she is able to speak in full sentences and ambulate without difficulty breathing. PD PAST MEDICAL HISTORY - Past Medical History Respiratory: Asthma Derm: Other - Past Surgical History Past Surgical History: No HEENT: Other - Present Medications Home Medications: Ambulatory Orders Medication Instructions Recorded Confirmed Albuterol Sulf [Ventolin Hfa 1 - 2 puffs INH Q4HR PRN #1 inhaler 10/26/20 Inhaler] Benzonatate [Tessalon] 200 mg PO TID PRN #30 cap 10/26/20 Colchicine 0.6 mg PO BID PRN #6 tablet 12/29/22 ONDANSETRON ODT Prepack 2 [ZOFRAN 4 mg TL Q6H PRN #15 tablet 04/03/23 ODT Prepack 2] - Allergies Allergies/Adverse Reactions: Allergies Allergy/AdvReac Type Severity Reaction Status Date / Time Penicillins Allergy Emesis Verified 12/29/22 09:09 Iodine and Iodide Containing AdvReac Emesis Verified 12/29/22 09:09 Produc vancomycin AdvReac Rash Verified 12/29/22 09:09 - Social History Does the pt smoke?: No Smoking Status: Never smoker Does the pt drink ETOH?: No Does the pt have substance abuse?: No - Immunizations Immunizations are current?: Yes - POLST Patient has POLST: No PD ED PE NORMAL - Vitals Vital signs reviewed: Yes - General General: Alert and oriented X 3, No acute distress, Well developed/nourished - HEENT HEENT: Atraumatic, PERRL - Neck Neck: Supple, no meningeal sign, No JVD - Cardiac Cardiac: RRR, No murmur, Strong equal pulses - Respiratory Respiratory: No respiratory distress, Other (diminshed breathsounds bilaterally due to body habitus) - Abdomen Abdomen: Normal bowel sounds, Soft, Non tender - Derm Derm: Normal color, Warm and dry, No rash - Extremities Extremities: No edema, No calf tenderness / cord - Neuro Neuro: Alert and oriented X 3, retirement village manager 2-12 intact, No motor deficit, Normal speech Eye Opening: Spontaneous Motor: Obeys Commands Verbal: Oriented GCS Score: 15 - Psych Psych: Normal mood Results - Vitals Vitals: Vital Signs - 24 hr 04/03/23 04/03/23 04/03/23 15:26 18:18 19:31 Temperature 36.8 C 36.8 C 36.8 C Heart Rate 112 H 107 H 107 H Respiratory 16 16 16 Rate Blood Pressure 132/87 H 136/82 H 136/82 H O2 Saturation 99 100 100 Oxygen O2 Source Room air - Labs Labs: Laboratory Tests 04/03/23 15:37 Nasal Adenovirus (PCR) NOT DETECTED Nasal B. parapertussis DNA (PCR) NOT DETECTED Nasal Coronavir 229E PCR NOT DETECTED Nasal Coronavir HKU1 PCR NOT DETECTED Nasal Coronavir NL63 PCR NOT DETECTED Nasal Coronavir OC43 PCR NOT DETECTED Nasal Enterovir/Rhinovir PCR DETECTED A Nasal Influenza B PCR NOT DETECTED Nasal Influenza A PCR NOT DETECTED Nasal Parainfluen 1 PCR NOT DETECTED Nasal Parainfluen 2 PCR NOT DETECTED Nasal Parainfluen 3 PCR NOT DETECTED Nasal Parainfluen 4 PCR NOT DETECTED Nasal RSV (PCR) NOT DETECTED Nasal B.pertussis DNA PCR NOT DETECTED Nasal C.pneumoniae (PCR) NOT DETECTED [place] Human Metapneumo PCR NOT DETECTED Nasal M.pneumoniae (PCR) NOT DETECTED Nasal SARS-CoV-2 (PCR) DETECTED A - Rads (name of study) Chest x-ray. Relevant Findings:: Final report received, EMP independent interpretation of test (No acute cardiopulmonary processes) PD Medical Decision Making - ED course ED course: 31-year-old female presents emergency department for what she describes as pain with inhalation. Chest x-ray was complete which did not reveal any pneumonia or other acute cardiopulmonary abnormalities. Viral swab was also completed and she did test positive for rhinovirus as well as COVID-19. Because this has been going on now for about 3 to 4 days I do not believe that the patient would benefit from Paxlovid she also said that she would not want because of the side effects that come with that including diarrhea. She is not having any more additional shortness of breath her lung sounds are clear. She was given some Zofran to help with her nausea she is able to tolerate liquids before she left she was given a work note per her request. She was tachycardic heart rate 107, I believe this is due to the rhinovirus and the COVID I did consider this being due to possible pulmonary embolism but given that patient is feeling significantly better after the Zofran she is able to breathe without difficulty she is not having any hemoptysis or unilateral leg swelling she has not had any recent long travel no history of PE or DVT and she is not currently on any ho rmone use and can hold off on working her up for pulmonary embolism at this time. She is given strict ER return precautions she is told to follow-up with her primary care provider this week. Departure - Departure Disposition: Home, Self Care Clinical Impression: COVID-19, Rhinovirus Instructions: ED Viral Syndrome Prescriptions: ONDANSETRON ODT Prepack 2 [ZOFRAN ODT Prepack 2] 4 mg TL Q6H PRN #15 tablet PRN Reason: Nausea / Vomiting Comments: Thank you for trusting us with your care. You did test positive for rhinovirus and COVID-19. Make sure going home you are getting plenty of rest drinking plenty of fluids and eating a very healthy well-balanced diet. [place] processed food and sugar can actually delay recovery from viruses. Recommend isolating until Saturday if your symptoms are any worse or you are still not getting any better please follow-up with your primary care provider for further evaluation. I have sent a prescription of Zofran to your preferred pharmacy which is [facility] we are also sending home with a couple Zofran to help with your nausea is very important drink plenty of fluids while you are recovering from these viruses. Please come back to the emergency department if you are having any worsening chest pain or shortness of breath nausea vomiting unable to keep any fluids down or any other concerning symptoms. Wishing a speedy recovery. Forms: PCP List, Activity restrictions Discharge Date/Time: 04/03/23 19:30
[2023-04-03] MEDS: ACETAMINOPHEN 325 MG TABLET PO STA (19:10)
[2023-04-03] MEDS: ONDANSETRON ODT 4 MG TABLET TL STA (19:11)
[2023-04-03] MEDS: ONDANSETRON ODT 4 MG Prepack 2 TL PRN (19:15)
== END 2023-04-03 19:30 | disposition home or self-care (01) ==
LOC: ED 15:02
DX: U07.1 COVID-19 (principal); B34.8 Other viral infections of unspecified site; R11.2 Nausea with vomiting, unspecified; Z79.899 Other long term (current) drug therapy
CPT/HCPCS: 71046; 87633; 99283; 99284; A9270; Q0162